=== PATIENT | male | born 1980 | race Caucasian/White ===

== ENCOUNTER 2020-02-04 10:10 | Emergency (ER) | payer OTHER, SELFPAY ==
[2020-02-04 10:11] VITALS: BP 131/85; PULSE 72; RESP 17; TEMP 36.9; O2SAT 100; BMI 32.8
--- NOTE | 2020-02-04 10:30 | ED.DCSUM_ITS ---
History of Present Illness Chief Complaint: Chest Pain Informant: Patient Onset: Days Narrative: 39-year-old male with no past medical history presents with complaints of chest pain. He states on 01/31 he developed some left-sided chest pressure that radiated into his left arm with associated shortness of breath and diaphoresis while he was moving boxes at work. The pain subsided to a dull ache that has been constant since then. Today the pain in his left arm worsened which is what brought him in. Denies cardiac history. Never smoker. Never had a stress test. States his dad had an WA in his 40s and later had a CABG. Denies fevers, chills, cough, abdominal pain, back pain, leg pain or swelling, recent surgery or travel, hormone use, or history of DVT/PE. Past Medical History - Allergies and Home Meds Allergies/Adverse Reactions: Allergies No Known Allergies Allergy (Verified 02/04/20 10:11) Primary Care Physician: [facility] Doctor,Out of [NON-STAFF] - Past Medical History: None Smoking Status: Never smoker Review of Systems General: Denies: Chills, Fever, Sweats Eyes: Denies: Visual changes - bilaterally, Diplopia ENT: Denies: Rhinorrhea, Sore throat Cardiovascular: Reports: Chest pain. Denies: Palpitations Respiratory: Reports: Dyspnea. Denies: Cough, Dyspnea on exertion Gastrointestinal: Denies: Abdominal pain, Nausea, Vomiting, Diarrhea, Melena, Hematochezia Genitourinary: Denies: Dysuria, Hematuria, Frequency Musculoskeletal: Denies: Back pain, Extremity Pain Skin: Denies: Rash, Wounds Neurological: Denies: Headache, Weakness, Numbness Physical Exam Vital Signs/Narrative: Vital Signs Temp Pulse Resp BP Pulse Ox 02/04/20 10:11 98.5 F 72 17 131/85 H 100 Inital Vital Signs reviewed: Yes General: Well nourished, Well developed, No Acute Distress Head: Normocephalic, Atraumatic Eyes: EOMI ENT: Moist mucous membranes, No rhinorrhea Neck: Supple, Nontender Cardiovascular: Regular rate, Regular rhythm, No murmurs Respiratory: No distress, CTA bilaterally, Chest nontender Abdomen: Soft, Nontender, Nondistended, Normal bowel sounds Back: Normal Inspection Extremities: Nontender, No edema Skin: Normal color, No rash Neurological: Alert, Oriented x3, Cranial nerves II-XII grossly intact, Normal Strength, Normal Sensation Psychological: Normal affect, Normal Mood Diagnostic/Tx/Re-eval Clinical Impression(s) from Imaging Studies Chest X-Ray 02/04/20 10:30 IMPRESSION: Normal x-ray examination of the chest. Electronically Signed: Rogerio Flores MD at 10:57 EDT Tel , Service support , Laboratory Data 02/04/20 02/04/20 02/04/20 10:25 10:25 13:25 WBC 5.4 RBC 4.29 L Hgb 13.3 Hct 39.5 L MCV 92.1 MCH 31.0 MCHC 33.7 RDW Std Deviation 45.5 H RDW Coeff of Alfonso 13.4 Plt Count 180 MPV 10.7 Immature Gran % (Auto) 0.200 Neut % (Auto) 42.0 L Lymph % (Auto) 43.6 H [place] % (Auto) 10.6 H Eos % (Auto) 3.0 Baso % (Auto) 0.6 Absolute Neuts (auto) 2.3 Absolute Lymphs (auto) 2.35 Nucleated RBC % 0 Sodium 143 Potassium 4.1 Chloride 110 H Carbon Dioxide 27.0 Anion Gap 6 BUN 7 Creatinine 0.86 Estim Creat Clear Calc 127.83 Est GFR (MDRD) Af Amer 129 Est GFR (MDRD) Non-Af 106 BUN/Creatinine Ratio 8.2 L Glucose 89 Calcium 8.5 Troponin I < 0.015 < 0.015 - Rhythm Strip Rhythm Strip: Sinus Rhythm Rate: 63 Ectopy: None - Medical Decision Making Patient appears well nontoxic. Vital signs within normal limits. EKG shows normal sinus rhythm with no signs of ischemia. Troponin x2 negative. PERC negative. Chest x-ray shows no acute process. He was given aspirin. Heart score is 3 and thus has low risk of major adverse cardiac event. Patient is stable for follow-up with his PCP and I advised he discuss getting a stress test outpatient. Discussed return precautions. He was agreeable with this plan and discharged home in stable condition. ED Disposition - Plan for ED Patient: Disposition: Home or Assisted Living Diagnosis: Chest pain Referrals: [facility] Doctor,Out of [NON-STAFF] -
--- NOTE | 2020-02-04 10:30 | RAD_ITS ---
STUDY: X-RAY CHEST REASON FOR EXAM: Male, 39 years old. CHEST PAIN TECHNIQUE: Single AP portable view of the chest. COMPARISON: None. FINDINGS: The lungs are clear and expanded. There is no demonstrated pleural abnormality. Normal size heart. Normal mediastinum and marcelina. Normal visualized pulmonary arteries. Normal visualized aortic arch and descending thoracic aorta. Normal visualized thoracic spine. Normal visualized ribs, clavicles, and shoulders. There is no demonstrated abnormality of the visualized soft tissue structures of the upper abdomen. RAD/Chest 1 View (Portable) IMPRESSION: Normal x-ray examination of the chest. Electronically Signed: Rogerio Flores MD at 10:57 EDT Tel , Service support ,
--- NOTE | 2020-02-04 10:30 | EKG12_ITS ---
Test Reason : CP Blood Pressure : / mmHG Vent. Rate : 063 BPM Atrial Rate : 063 BPM P-R Int : 182 ms QRS Dur : 098 ms QT Int : 408 ms P-R-T Axes : 051 035 034 degrees QTc Int : 417 ms Normal sinus rhythm Normal ECG Confirmed by MATTI BANSAL MD ([id number]), rewrite editor ZAY JAIMES ([id number]) on 02/06/2020 1:24:12 PM Referred By: SALENA Confirmed By:MATTI BANSAL MD
[2020-02-04 10:33] VITALS: O2SAT 99
[2020-02-04 10:36] LABS: Absolute Lymphocyte Count 2.35 X10^3/uL (0.83-4.51); Absolute Neutrophil Count 2.3 X10^3/uL (2.0-7.7); Basophil# 0.03 X10^3/uL; Basophil% 0.6 % (0-1); Eosinophil# 0.16 X10^3/uL; Hematocrit 39.5 % (40-54); Hemoglobin 13.3 g/dL (13.0-16.5); Lymphocyte # 2.35 X10^3/ul (4.0); Lymphocyte % 43.6 % (19-41); Mean Corp Hgb Conc 33.7 g/dL (32-36); Mean Corpuscular Volume 92.1 fL (80-94); Mean Platelet Vol. 10.7 fl (6.2-12.0); Monocyte# 0.57 X10^3/uL; Monocyte% 10.6 % (0-10); NRBC Flagged by Analyzer 0 % (0-5); Neutrophil # 2.27 X10^3/uL (2.7-7.7); Platelet Count 180 K/mm3 (150-450); RBC Distribution Width CV 13.4 % (11.6-14.6); RBC Distribution Width SD 45.5 fl (35.1-43.9); Red Blood Count 4.29 M/mm3 (4.6-6.2); White Blood Count 5.4 K/mm3 (4.4-11.0)
[2020-02-04] MEDS: Aspirin 81 MG TAB.CHEW 324 MG PO (10:44)
[2020-02-04 10:54] LABS: Anion Gap 6 (5-15); BUN 7 mg/dL (7-18); BUN/Creat Ratio 8.2 RATIO (10-20); Calcium,Total 8.5 mg/dL (8.5-10.1); Chloride 110 mmol/L (98-107); Creatinine, Serum 0.86 mg/dL (0.70-1.30); EST Glomerular Filtration Rate 106 mL/min (>60); Est Glom Filt Rate - Afr Amer 129 mL/min (>60); Estimated Creatinine Clearance 127.83 ml/min; Glucose 89 mg/dL (74-106); Potassium 4.1 mmol/L (3.5-5.1); Sodium Level 143 mmol/L (136-145)
[2020-02-04 11:27] VITALS: BP 122/79; PULSE 64; RESP 14; O2SAT 97
[2020-02-04 12:53] VITALS: BP 110/75; PULSE 50; RESP 16; O2SAT 100
[2020-02-04 13:43] VITALS: BP 115/72; PULSE 64; RESP 13; O2SAT 97
[2020-02-04 14:11] VITALS: BP 125/78; PULSE 63; RESP 16; O2SAT 97
== END 2020-02-04 14:12 | disposition home or self-care (01) ==
PROVIDERS: Emergency Provider Physician Assistant
DX: R07.89 Other chest pain (principal)
CPT/HCPCS: 36415; 71045; 80048; 84484; 85025; 93005; 99284; A4216

== ENCOUNTER 2021-05-30 09:11 | Outpatient (CLI) | payer OTHER, SELFPAY ==
[2021-05-30 11:08] LABS: Absolute Lymphocyte Count 2.39 X10^3/uL (0.83-4.51); Absolute Neutrophil Count 2.9 X10^3/uL (2.0-7.7); Basophil# 0.05 X10^3/uL; Basophil% 0.8 % (0-1); Eosinophil# 0.38 X10^3/uL; Eosinophils% 6.1 % (0-5); Hematocrit 42.7 % (40-54); Hemoglobin 14.1 g/dL (13.0-16.5); Lymphocyte # 2.39 X10^3/ul (0.83-4.51); Lymphocyte % 38.1 % (19-41); Mean Corpuscular Hgb 30.3 pg (27.0-32.0); Mean Corpuscular Volume 91.6 fL (80-94); Mean Platelet Vol. 11.2 fl (6.2-12.0); Monocyte# 0.55 X10^3/uL; Monocyte% 8.8 % (0-10); NRBC Flagged by Analyzer 0 % (0-5); Neutrophil # 2.89 X10^3/uL (2.7-7.7); Platelet Count 187 K/mm3 (150-450); RBC Distribution Width CV 13.6 % (11.6-14.6); RBC Distribution Width SD 45.8 fl (35.1-43.9); Red Blood Count 4.66 M/mm3 (4.6-6.2); White Blood Count 6.3 K/mm3 (4.4-11.0)
[2021-05-30 11:16] LABS: Vitamin D,25 Hydroxy 29.7 ng/mL
[2021-05-30 11:20] LABS: Hemoglobin A1c 5.9 % (3.8-5.6)
[2021-05-30 11:26] LABS: ALB/GLOB Ratio 0.9 RATIO (0.9-2.4); AST(SGOT) 39 U/L (15-37); Alanine Aminotransfer ALT/SGPT 81 U/L (16-61); Albumin, Serum 3.9 g/dL (3.2-5.0); Alkaline Phosphatase 110 U/L (45-117); Anion Gap 8 (5-15); BUN 13 mg/dL (7-18); Calcium,Total 9.1 mg/dL (8.5-10.1); Chloride 107 mmol/L (98-107); Cholesterol 171 mg/dL (200); Creatinine, Serum 0.87 mg/dL (0.70-1.30); EST Glomerular Filtration Rate 104 mL/min (>60); Est Glom Filt Rate - Afr Amer 125 mL/min (>60); Free T3 2.8 pg/mL (2.18-3.98); Globulin 4.2 g/dL (2.2-4.2); Glucose 102 mg/dL (74-106); High Density Lipoprotein 36 mg/dL; PSA,Total - Annual Screen 0.26 ng/mL (0.00-4.00); Potassium 4.2 mmol/L (3.5-5.1); Protein, Total 8.1 g/dL (6.4-8.2); Sodium Level 138 mmol/L (136-145); T4 Free Direct 0.87 ng/dL (0.76-1.46); Thyroid Stim Hormone (TSH) 1.99 uIU/mL (0.358-3.74); Triglycerides 139 mg/dL; Very Low Density Lipoprotein 28 mg/dL (5-40)
[2021-06-04 12:08] LABS: Testosterone, Free 12.91 ng/dL (5.00-21.00)
[2021-06-04 12:50] LABS: Testosterone, Total 587 ng/dL (264-916)
== END 2021-05-30 23:59 | disposition short-term general hospital (02) ==
LOC: BIMLAB 09:11
PROVIDERS: PCP Internal Medicine; Referring Provider Internal Medicine; Visit Provider Internal Medicine
DX: E55.9 Vitamin D deficiency, unspecified (principal); R53.83 Other fatigue; Z13.220 Encounter for screening for lipoid disorders; Z13.1 Encounter for screening for diabetes mellitus; Z90.89 Acquired absence of other organs; Z86.69 Personal history of other diseases of the nervous system and sense organs
CPT/HCPCS: 36415; 80053; 80061; 82306; 83036; 84153; 84402; 84403; 84439; 84443; 84481; 85025; G0103

== ENCOUNTER 2021-06-06 07:28 | Outpatient (CLI) | payer OTHER, SELFPAY ==
--- NOTE | 2021-06-06 07:31 | US_ITS ---
STUDY: ABDOMINAL ULTRASOUND - RIGHT UPPER QUADRANT REASON FOR VISIT: Male, 40 years old Elevated LFTs possible fatty liver disease. TECHNIQUE: Ultrasound evaluation of the right upper quadrant was performed with real-time and static kan-scale imaging. TECHNICAL QUALITY: Adequate. COMPARISON: None. FINDINGS: Liver: The liver measures 20.3 cm. There is increased echogenicity consistent with fatty infiltration. The bile ducts are within normal limits. There is hepatic color flow. The direction of portal flow is hepatopetal. There is no demonstrated mass lesion. Gallbladder: Normal distended gallbladder. The gallbladder wall measures 2.0 mm. There is a negative sonographic Serra''s sign. There is no pericholecystic fluid. There are no gallstones. Common Bile Duct (C.B.D.): The common bile duct measures 3.4 mm. Pancreas: Normal size of the head, body and tail of the pancreas. There is increased echogenicity of the pancreas. There is no demonstrated pancreatic mass or cyst. Right Kidney: Normal size of the right kidney. The right kidney measures 12.9 x 6.6 x 6.2 cm. Normal renal cortex. The right cortex measures 1.7 cm. There is no demonstrated renal mass or cyst. There is no right hydronephrosis. US/Liver IMPRESSION: Hepatomegaly with diffuse fatty infiltration of the liver, no discrete lesion. Remaining solid organs of the abdomen are sonographically normal. Pancreas is nonspecifically echogenic Electronically Signed: Bryan Gan MD at 13:32 EST , Service support ,
== END 2021-06-06 23:59 | disposition short-term general hospital (02) ==
LOC: US 07:30
PROVIDERS: PCP Internal Medicine; Referring Provider Internal Medicine; Visit Provider Internal Medicine
DX: R79.89 Other specified abnormal findings of blood chemistry (principal)
CPT/HCPCS: 76705

== ENCOUNTER 2021-08-01 08:19 | Day surgery (SDC) | payer OTHER, SELFPAY ==
[2021-08-01 08:40] VITALS: BP 134/87; PULSE 90; RESP 16; TEMP 36.1; O2SAT 97; BMI 36.6
[2021-08-01] MEDS: Lactated Ringers 1,000 ML 15 ML IV (08:53)
--- NOTE | 2021-08-01 08:53 | PCM.HP.BLA ---
History and Physical Date of Admission: 08/01/21 Intake Visit Reasons: C-Scope/Change in bowel habits/Abdominal Mass Chief Complaint: c-scope [employer] Required: No Is patient in pain?: No Allergies No Known Allergies Allergy (Verified 07/17/21 15:05) Medications multivitamin with minerals 1 ea PO DAILY 02/04/20 [History Confirmed 07/17/21] fluticasone propionate 50 mcg/actuation nasal spray,suspension 2 spray INTRANASAL DAILY 05/29/21 [History Confirmed 07/17/21] [facility] Medical History (Updated 07/17/21 @ 16:04 by Praveena MARTÍNEZ PAMarcyC) GERD (gastroesophageal reflux disease) History of sleep apnea Surgical History History of tonsillectomy and adenoidectomy Family History Father Diabetes Heart disease Multiple sclerosis Grandmother Arthritis Social History Smoking Status: Never smoker alcohol intake: current alcohol intake frequency: holidays/special occasions only substance use type: does not use what type of physical activity do you participate in: bicycling and yoga frequency: 1-2 times per week HPI HPI HPI: ROBERTO LAI, is a 40 M who presents to the office today for change in bowel habits and reflux. Patient established with his new PCP and noted he has recently had a change in bowel habits within the last 6 months. Patient notes his stool is ribbon-like, thin and flat. He also notes after completing his bowel movement. He also notes itchiness at his anus along with clear mucous. He denies blood mixed with the mucous. He notes this occurs after every bowel movement. He notes small amounts of blood on the toilet paper every so often. He denies abdominal pain. He denies recent unintentional weight loss. He notes losing 40 pounds last summer through diet and exercise. He notes also having reflux symptoms once a week. He notes this only occurs at night time. Patient denies having a previous upper or lower endoscopy. He denies taking a PPI daily. He notes he is taking ibuprofen multiple times per week for aches and pains approximately 2 tablets three times per day. Patient also notes a bulge to the right of the umbilicus. Patient denies any previous abdominal surgeries. He states he noticed this area approximately 6-8 months ago. He denies any trauma or heavy lifting to cause the bulge. He notes the bulge more with standing. He states the area is not painful or tender. He denies any coughing or sneezing fit. He also notes after losing 40 pounds last year, he has gained it back. ROS General General: Yes fatigue; No weight change, appetite, colon cancer, breast cancer or weakness HEENT HEENT: No difficulty swallowing, eye injury, eye surgery, swollen glands or hoarseness Endo Endocrine: No thyroid disease, diabetes mellitus, thyroid cancer, Hair loss, heat intolerance or cold intolerance Skin Skin: No rash or changing moles Breast Breast: No left breast lump, right breast lump, nipple discharge, breast pain, abnormal mammogram, abnormal US or breast enlargement Musc Musculoskeletal: Yes back problems and arthritis; No rheumatoid arthritis, gout or joint pain Cardio Cardiovascular: No murmur, pacemaker, heart disease, atrial fibrillation, high blood pressure, heart attack, heart stent, palpitations, shortness of breat with exertion or chest pain Psych Psychiatric: No depression, anxiety or hearing voices Resp Respiratory: No shortness of breath, No sleep apnea, No cough, No COPD, No asthma, No emphysema and No wheezing Gastro Gastrointestinal: No abdominal pain, No nausea or vomiting, No diarrhea, No constipation, No blood in stool, Yes acid reflux, Yes hemorrhoids, No ulcers, No gallbladder problem and No black,tarry stools Triston Hematologic: No blood thinners, No blood disorders, No bleeding, No anemia and No blood clots Neuro Neurologic: No system reviewed and no additional complaints, except as documented, No as per HPI, No abnormal gait, No abnormal hearing, No abnormal movements, No abnormal speech, No behavioral changes, No burning sensations, No confusion, No convulsions, No disequilibrium, No dizziness, No localized weakness, No frequent falls, No headache(s), No lack of coordination, No loss of vision, No memory loss, No numbness, No other visual disturbances, No radicular pain, No restless legs, No sensory deficit, No syncope, No tingling, No tremor(s), No weakness and No other Exam Const General: cooperative, healthy appearing, comfortable and no acute distress [facility] Head: normal to inspection Eyes General: appearance normal, both eyes and all related structures Neck Neck: normal visual inspection Resp Effort & Inspection: normal respiratory effort Auscultation: clear to auscultation bilaterally Cardio Rate: regular rate Rhythm: regular rhythm GI Inspection: normal to inspection Palpation: soft and no hernias Auscultation: normal bowel sounds Other: Asymmetry noted to the right of the umbilicus. Evaluated area with patient laying supine with no pain and unable to palpate a hernia. Patient then stood up on the floor. There is a slight notable asymmetry to the right of the umbilicus. I again evaluated the area for a hernia and was not palpated. In comparing with the other side, there is no hernia. Abdominal bulge appears to be a distribution of subcutaneous fat. Musc Cervical Spine: normal cervical lordosis Skin General: no rashes or lesions noted Neuro General: no focal motor deficits and CN's II-XI intact bilaterally Extrem General: normal to inspection Psych Appearance: grossly normal Affect: normal affect COVID (Procedure Consent) Procedure Criteria Procedure Criteria: Yes Elective The surgeon/proceduralist and patient have discussed in detail the risk of exposure to and/or potential harm posed by the COVID-19 virus with having a surgery/procedure at this time versus the risk of delaying the surgery/procedure. It is not possible to know either the risk of delaying the surgery or procedure or chance of getting an infection with perfect accuracy, but a joint decision was made between the patient and the surgeon/proceduralist to proceed at this time with the scheduled surgery/procedure as indicated on the consent form. Assessment and Plan Assessment and Plan (1) Change in bowel movement: Status: Acute Plan - Praveena MARTÍNEZ PAMarcyC: Dr. Barahona will plan to perform an upper and lower endoscopy with possible biopsies. Procedure details, risks and benefits have been explained to the patient. It was discussed with the patient in regards to not finding an etiology for the change in bowel movements or mucous of the stool. We will plan for 1 day of clear liquids with Miralax prep. I have also recommended an upper scope due to reflux symptoms and chronic use of NSAIDs for pain. Patient has had the opportunity to ask and have questions answered. Patient verbally understands and agrees with the plan. (2) GERD (gastroesophageal reflux disease): Status: Acute Qualifiers: Esophagitis presence: esophagitis presence not specified Qualified Code(s): K21.9 - Gastro-esophageal reflux disease without esophagitis Plan - Praveena MARTÍNEZ PA-C: Proceed with an upper scope (3) Abdominal wall bulge: Status: Acute Plan - Praveena MARTÍNEZ PA-C: Hernia not palpated during physical exam. Patient has never had any previous abdominal surgeries. No umbilical hernia. Appears to be a redistribution of subcutaneous fat. No surgical intervention recommended. Coding Level of Care Code Off vis,new,level 3 Diagnoses Change in bowel movement R19.8 GERD (gastroesophageal reflux disease) K21.9 Esophagitis presence: esophagitis presence not specified Abdominal wall bulge R19.00 07/17/21 1612<Electronically signed by Praveena MARTÍNEZ PA-C> I have re-examined the patient. There are no clinical changes since date of exam. Chris Knowles M.D., F.A.C.S.
--- NOTE | 2021-08-01 09:15 | EGD_PTH ---
PATIENT: ROBERTO LAI LOC: EN U#:[id number] AGE/SX: 40/M ROOM: RE08/01/[address]: Dr. Chris Knowles MD : 1980 BED: DIS: 08/01/2021 SPEC #: [id number] RECD: 08/01/21 12:24 STATUS: DOC BRYCE #: [id number] CHRISTINE: 08/01/21 09:[address]: Chris Knowles DEPT: SURGICAL PATHOLOGY RECD BY: Brenda Parry ENTERED: 08/01/21 13:15 SP TYPE: EGD BIOPSY OT DR: Dr. Tosin Nair MD Tissues: A - Duodenum, NOS B - Gastric mucous membrane C - Esophagus, NOS D - Esophagus, NOS E - COLON BIOPSY Procedures: Special Stain Group II Surgery Specimen Level IV Alcian Blue/PAS (control) HEADER OPERATION: Colonoscopy, EGD ([facility] [place]) PRE-OP DIAGNOSIS: Change in bowel movement, GERD TISSUE SUBMITTED: A ? Duodenum biopsy, B ? Gastric antrum biopsy, C ? Distal esophagus biopsy, D ? Mid esophagus biopsy, E ? Random colon biopsy MICROSCOPIC DIAGNOSIS A. Duodenum, biopsy: Mild nonspecific chronic duodenitis. B. Gastric antrum, biopsy: Chronic gastritis. See comment. C. Distal esophagus, biopsy: Reflux esophagitis. No evidence of goblet cell metaplasia. See comment. D. Mid esophagus, biopsy: Consistent with eosinophilic esophagitis. E. Colon, random biopsy: No significant pathologic change. See comment. AM:chepe 08/04/2021 COMMENT B. The results of immunohistochemistry for Helicobacter pylori will be reported separately ([id number]). C. The eosinophilic count is greater than 15 per high power field. Clinical correlation is suggested. Alcian blue/PAS stain with matched control supports the above diagnosis. E. Eosinophils are increased in the mucosa. The significance of this is unclear. Clinical correlation is suggested. MICROSCOPIC DESCRIPTION Slides are reviewed. GROSS DESCRIPTION A - Received in fixative is one container labeled with the patient's name and designated duodenum biopsy. The specimen consists of one irregular fragment of light cardenas soft tissue that measures 0.5 x 0.5 x 0.1 cm. The specimen is totally submitted in one cassette. B - Received in fixative is one container labeled with the patient's name and designated gastric antrum biopsy. The specimen consists of one irregular fragment of light cardenas soft tissue that measures 0.6 x 0.5 x 0.1 cm. The specimen is totally submitted in one cassette. C - Received in fixative is one container labeled with the patient's name and designated distal esophagus biopsy. The specimen consists of two irregular fragments of light cardenas soft tissue that in aggregate measure 0.5 x 0.3 x 0.1 cm. The specimen is totally submitted in one cassette. D - Received in fixative is one container labeled with the patient's name and designated mid esophagus biopsy. The specimen consists of multiple irregular fragments of light cardenas soft tissue that in aggregate measure 0.5 x 0.3 x 0.1 cm. The specimen is totally submitted in one cassette. E - Received in fixative is one container labeled with the patient's name and designated random colon biopsy. The specimen consists of multiple irregular fragments of light cardenas soft tissue that in aggregate measure 1 x 0.5 x 0.1 cm. The specimen is totally submitted in one cassette. / AM:chepe 08/01/2021 TC:3 CPT: 18796 x5, 45038
--- NOTE | 2021-08-01 09:15 | IMM_PTH ---
PATIENT: ROBERTO LAI LOC: EN U#:[id number] AGE/SX: 40/M ROOM: RE08/01/[address]: Dr. Chris Knowles MD : 1980 BED: DIS: 08/01/2021 SPEC #: [id number] RECD: 08/04/21 09:13 STATUS: DOC REJuan #: [id number] CHRISTINE: 08/01/21 09:[address]: Chris Knowles DEPT: IMMUNOHISTOCHEMISTRY RECD BY: Lulu Murrieta ENTERED: 08/04/21 09:14 SP TYPE: IMMUNO OTHR DR: Dr. Tosin Nair MD Tissues: B - Stomach, NOS Procedures: H Pylori (initial) PHYSICIAN & INSTITUTION [address] [address] SPECIMEN INFORMATION: Tissue Source: B ? Gastric antrum biopsy Clinical Info: Change in bowel movement, GERD Specimen Number: [id number] CPT code: 56719 METHODOLOGY: Deparaffinized sections of prefer/formalin-fixed tissue or PAP/DQ stained slides are incubated with monoclonal/polyclonal antibodies/oligonucleotide probes. Localization is made via biotin free immunoperoxidase method. Appropriate controls are performed and reacted as expected. Results on target cell population are indicated in the following table: RESULTS: ANTIBODY / CLONE RESULT Block B H Pylori (polyclonal) negative These tests were developed and their performance characteristics determined by [facility]. They may not have been cleared or approved by the U.S. Food and Drug Administration. The FDA has determined that such clearance or approval is not necessary. The above immunohistochemical/dualISH markers are ordered and reviewed by the Pathologist. INTERPRETATION: B. Gastric antrum, biopsy: Negative for Helicobacter pylori organisms. AM:chepe 08/04/2021
[2021-08-01 10:26] VITALS: BP 134/87; BP 93/53; PULSE 84; RESP 18; TEMP 36.7; O2SAT 98
--- NOTE | 2021-08-01 10:29 | OP.EGD_ITS ---
Patient Name: Brent Shipley Procedure Date: 08/01/2021 9:38 AM Date of : 1980 Age: 40 Procedure: Upper GI endoscopy Indications: Suspected esophageal reflux Providers: Chris Knowles MD Medicines: See the Anesthesia note for documentation of the administered medications Complications: No immediate complications. Procedure: Pre-Anesthesia Assessment: - Prior to the procedure, a History and Physical was performed, and patient medications and allergies were reviewed. The patient's tolerance of previous anesthesia was also reviewed. The risks and benefits of the procedure and the sedation options and risks were discussed with the patient. All questions were answered, and informed consent was obtained. Prior Anticoagulants: The patient has taken no previous anticoagulant or antiplatelet agents. ASA Grade Assessment: III - A patient with severe systemic disease. After reviewing the risks and benefits, the patient was deemed in satisfactory condition to undergo the procedure. After obtaining informed consent, the endoscope was passed under direct vision. Throughout the procedure, the patient's blood pressure, pulse, and oxygen saturations were monitored continuously. The gastroscope was introduced through the mouth, and advanced to the second part of duodenum. The upper GI endoscopy was unusually difficult due to enhanced patient gag reflex causing intolerance of esophageal intubation, the patient's body habitus and the patient's respiratory instability. Successful completion of the procedure was aided by Anesthesia staff assisting with sedation. The patient tolerated the procedure well. Scope In: 9:53:54 AM Scope Out: 9:59:52 AM Total Procedure Duration Time 0 hours 5 minutes 58 seconds Findings: Mucosal changes including circumferential folds were found in the entire esophagus. Biopsies were taken with a cold forceps for histology. Diffuse mild inflammation was found in the gastric antrum. Biopsies were taken with a cold forceps for histology. Diffuse mildly erythematous mucosa without active bleeding and with no stigmata of bleeding was found in the duodenal bulb. Biopsies were taken with a cold forceps for histology. A medium-sized hiatal hernia was present. Impression: - Esophageal mucosal changes suspicious for eosinophilic esophagitis. Biopsied mid and distally. - Chronic gastritis. Biopsied. - Erythematous duodenopathy. Biopsied. Recommendation: - Discharge patient to home. - Resume previous diet. - Continue present medications. - Use Prilosec (omeprazole) 40 mg PO daily. Procedure Code(s): --- Professional --- 00159, Esophagogastroduodenoscopy, flexible, transoral; with biopsy, single or multiple Diagnosis Code(s): --- Professional --- K22.8, Other specified diseases of esophagus K29.50, Unspecified chronic gastritis without bleeding K31.89, Other diseases of stomach and duodenum CPT copyright 2017 [employer]. All rights reserved. The codes documented in this report are preliminary and upon order caller review may be revised to meet current compliance requirements. Chris Knowles MD 08/01/2021 10:29:08 AM This report has been signed electronically. Number of Addenda: 0 Note Initiated On: 08/01/2021 9:38 AM
[2021-08-01 10:30] VITALS: BP 106/66; BP 134/87; PULSE 90; RESP 18; O2SAT 99
--- NOTE | 2021-08-01 10:30 | OP.CCLET_ITS ---
08/01/2021 Tosin Nair [facility] [address] [place] [address] Re : Upper GI endoscopy procedure for Brent Shipley Dear Dr. Nair This procedure was performed on Sunday, August 01, 2021. My impressions and recommendations are as follows: Impressions : - Esophageal mucosal changes suspicious for eosinophilic esophagitis. Biopsied mid and distally. - Chronic gastritis. Biopsied. - Erythematous duodenopathy. Biopsied. Recommendations : - Discharge patient to home. - Resume previous diet. - Continue present medications. - Use Prilosec (omeprazole) 40 mg PO daily. My findings are described in the full procedure note, which is enclosed. If I can be of further assistance, please feel free to contact me at Doctor phone number(s): Work: . Sincerely, Chris Knowles MD 08/01/2021 10:29:08 AM This report has been signed electronically.
--- NOTE | 2021-08-01 10:34 | OP.COLON_ITS ---
Patient Name: Brent Shipley Procedure Date: 08/01/2021 10:00 AM Date of : 1980 Age: 40 Procedure: Colonoscopy Indications: Change in bowel habits, Change in stool caliber Providers: Chris Knowles MD Medicines: See the Anesthesia note for documentation of the administered medications Patient Profile: Last Colonoscopy: none. The patient's first colonoscopy is today. Complications: No immediate complications. Procedure: Pre-Anesthesia Assessment: - Prior to the procedure, a History and Physical was performed, and patient medications and allergies were reviewed. The patient's tolerance of previous anesthesia was also reviewed. The risks and benefits of the procedure and the sedation options and risks were discussed with the patient. All questions were answered, and informed consent was obtained. Prior Anticoagulants: The patient has taken no previous anticoagulant or antiplatelet agents. ASA Grade Assessment: III - A patient with severe systemic disease. After reviewing the risks and benefits, the patient was deemed in satisfactory condition to undergo the procedure. After I obtained informed consent, the scope was passed under direct vision. Throughout the procedure, the patient's blood pressure, pulse, and oxygen saturations were monitored continuously. The colonoscope was introduced through the anus and advanced to the cecum, identified by appendiceal orifice and ileocecal valve. The colonoscopy was performed without difficulty. The patient tolerated the procedure well. The quality of the bowel preparation was good. The ileocecal valve and the appendiceal orifice were photographed. Scope In: 10:08:00 AM Scope Withdrawal Time 0 hours 6 minutes 10 seconds Scope Out: 10:22:33 AM Total Procedure Duration Time 0 hours 14 minutes 33 seconds Findings: The perianal and digital rectal examinations were normal. The colon (entire examined portion) appeared normal. Biopsies for histology were taken with a cold forceps from the entire colon for evaluation of microscopic colitis. Impression: - The entire examined colon is normal. Biopsied. Recommendation: - Discharge patient to home. - Resume previous diet. - Continue present medications. - Repeat colonoscopy in 10 years for screening purposes. Procedure Code(s): --- Professional --- 99899, Colonoscopy, flexible; with biopsy, single or multiple Diagnosis Code(s): --- Professional --- R19.4, Change in bowel habit R19.5, Other fecal abnormalities CPT copyright 2017 [employer]. All rights reserved. The codes documented in this report are preliminary and upon delimber operator review may be revised to meet current compliance requirements. Chris Knowles MD 08/01/2021 10:33:22 AM This report has been signed electronically. Number of Addenda: 0 Note Initiated On: 08/01/2021 10:00 AM
[2021-08-01 10:35] VITALS: BP 110/71; BP 134/87; PULSE 85; RESP 18; O2SAT 98
--- NOTE | 2021-08-01 10:35 | OP.CCLET_ITS ---
08/01/2021 Tosin Nair [facility] [address] [place] [address] Re : Colonoscopy procedure for Brent Shipley Dear Dr. Nair This procedure was performed on Sunday, August 01, 2021. My impressions and recommendations are as follows: Impressions : - The entire examined colon is normal. Biopsied. Recommendations : - Discharge patient to home. - Resume previous diet. - Continue present medications. - Repeat colonoscopy in 10 years for screening purposes. My findings are described in the full procedure note, which is enclosed. If I can be of further assistance, please feel free to contact me at Doctor phone number(s): Work: . Sincerely, Chris Knowles MD 08/01/2021 10:33:22 AM This report has been signed electronically.
[2021-08-01 10:42] VITALS: BP 113/70; BP 134/87; PULSE 83; RESP 18; TEMP 36.7; O2SAT 97
[2021-08-01 11:28] VITALS: BP 134/87
== END 2021-08-01 23:59 | disposition home or self-care (01) ==
LOC: EN 08:20 → AC 08:20
PROVIDERS: PCP Internal Medicine; Referring Provider Internal Medicine; Visit Provider Surgery
PROC: 0DJD8ZZ Inspection of Lower Intestinal Tract, Via Natural or Artificial Opening Endoscopic (ICD-10-PCS; CPT 45378; principal; 2021-08-01 09:10)
DX: K29.50 Unspecified chronic gastritis without bleeding (principal); K29.80 Duodenitis without bleeding; K21.00 Gastro-esophageal reflux disease with esophagitis, without bleeding; E66.9 Obesity, unspecified; K76.0 Fatty (change of) liver, not elsewhere classified; Z68.36 Body mass index [BMI] 36.0-36.9, adult; K44.9 Diaphragmatic hernia without obstruction or gangrene
CPT/HCPCS: 45380; 43239; 87426; 88305; 88313; 88342; C9803; J7120; J2405

== ENCOUNTER 2021-10-31 07:00 | Outpatient (RCR) | payer OTHER, SELFPAY ==
--- NOTE | 2021-08-21 17:44 | HP.PTEVAL ---
Patient's Visit Information ROBERTO LAI is a 41 year old M referred to Physical Therapy by Tosin Nair MD with a diagnosis of R bicipital tendonits. Date of Evaluation: 08/21/21 Physical Therapist: Jesus Rios, PT, ATC - Visit Plan Frequency: 2x /Week Duration: 4-6 Weeks Plan: R shoulder strengthening (rot cuff and ECC biceps), scap stab ex's, UBE, and HEP - Subjective Pt reports he injured his R shoulder last paddle boarding last summer. Pt reports his R shoulder was very sore for about one week, and then the pain slowily lessened. Pt reports he continues to experience the same pain through today if he performs specific movements. Pt reports any type of throwing, overhead lifting, and many other quick movements tend to increase his pain. Pt is R hand dominant. Pt reports he has had a PMHx of R shoulder pain in the past that would usually resolve itself. No tingling or numbness at this time. Pt reports occasional sleep difficulty secondary to pain. 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 Pt reports no Dx tests at this time. 1/10 pain at rest, 6/10 pain at worst. - Pain R shoulder Pain Intensity (Out of 10): 1 Pain Intensity Range: 6 - Objective Neuro: B UE sensation is WNL to light touch. B bicepital reflex= 2/3. Palpation: Pt is sore along the LHB tendon. No obvious deformity at this time. ROM: L shoulder flex= 140, abd= 140, ER= 50, IR WNL; R shoulder flex= 140, abd= 130, ER= 50, IR WNL. MMT: R shoulder flex= 7, abd= 15, bicep flex= 23; L shoulder flex= 23, abd= 27, bicep flex= 23. Special tests: pos apprehension test, neg - Balance/Special Test Scores Quick DASH Score: 27.6175 - Goals Goal 1:: Decrease R shoulder pain x 50% to aid with sleep Goal Time Frame: 4-6 Weeks Goal 2:: Increase R shoulder flexion and abd strength x 5#F to aid with IADL's Goal Time Frame: 4-6 Weeks Goal 3:: I with HEP Goal Time Frame: 4-6 Weeks - Rehabilitation Potential Physical Therapy Diagnosis: Pt has R shoulder pain, weakness, and difficulty with overhead lifting secondary to bicipital tendonits Rehabilitation Potential: Good - Anticipated Interventions Patient/Client Instruction: Educate patient on: Condition, Plan of Care For the Purpose of:: To improve self management Therapeutic Exercise to Include: Strength training, Endurance training, Flexibilty training, Active ROM, Scapular Strength/Stabilization For the Purpose of:: To decrease pain, To improve muscle performance and motor function, To improve ability of physical actions for home/community/work/leisure Cryotherapy (ice pack, ice massage): Yes For the Purpose of:: To decrease pain Thank you for the opportunity to evaluate your patient. For Medicare and Medicare HMO plans, please review the plan of care and approve it. It will need to be FAXED BACK to us at [phone] for Medicare purposes. For Medicare only, by signing this I certify the plan of care. Please let me know if there are questions or concerns regarding this plan of care. Physician Signature: Date:
--- NOTE | 2021-09-26 07:35 | HP.PTREVAL ---
Tosin Nair MD, It has been my pleasure to treat ROBERTO LAI over the last 8 visits for R bicipital tendonits. Please see the progress note below for an update on the physical therapy plan of care! Subjective: Pt reports he is feeling better, but still has pain with specific movements Objective/Function: R shoulder pain ranges from 1/10 to 6/10. R shoulder MMT: flex= 13, abd= 24 #F. Pt is progressing with HEP. Pt is making sig progress towards Rx goals Plan Plan: F/U in 4 weeks. Pt to continue with I HEP until that time. Balance/Gait/Functional tests - Balance/Special Test Scores Quick DASH Score: 18.1800 Goals Goal 1:: Decrease R shoulder pain x 50% to aid with sleep Goal Time Frame: 4-6 Weeks Goal Progress: Progressing Goal 2:: Increase R shoulder flexion and abd strength x 5#F to aid with IADL's Goal Time Frame: 4-6 Weeks Goal Progress: Goal Met Goal 3:: I with HEP Goal Time Frame: 4-6 Weeks Goal Progress: Progressing Anticipated Interventions Patient/Client Instruction: Educate patient on: Condition, Plan of Care For the Purpose of:: To improve self management Therapeutic Exercise to Include: Strength training, Endurance training, Flexibilty training, Active ROM, Scapular Strength/Stabilization For the Purpose of:: To decrease pain, To improve muscle performance and motor function, To improve ability of physical actions for home/community/work/leisure Cryotherapy (ice pack, ice massage): Yes For the Purpose of:: To decrease pain Please do not hesitate to contact me at [phone] by phone or if you have questions or concerns regarding this new plan of care! Sincerely, Jesus Rios, PT, ATC
--- NOTE | 2021-10-31 07:23 | HP.PTDCSUM ---
It has been my pleasure to treat ROBERTO LAI referred by Tosin Nair MD, with the diagnosis of R bicipital tendonits for a total of 9 visit(s). Discharge Date: Please see the following information for a summary of their discharge status. Subjective: I am doing a lot better, but i still get occasional pain R shoulder Pain Intensity (Out of 10): 0 % Improvement: 60 Objective/Function: R shoulder pain ranges from 0-2/10. MMT: R shoulder flex= 16, abd= 23 #F. Pt is I with HEP. Rx goals achieved Goal 1:: Decrease R shoulder pain x 50% to aid with sleep Goal Progress: Goal Met Goal 2:: Increase R shoulder flexion and abd strength x 5#F to aid with IADL's Goal Progress: Goal Met Goal 3:: I with HEP Goal Progress: Goal Met Plan: Discharge to HEP If there are questions or concerns regarding this patient's physical therapy, please feel free to call me at [phone]. Thank you for the referral of this patient. Sincerely, Jesus Rios, PT, ATC Balance/Gait/Functional tests - Balance/Special Test Scores Quick DASH Score: 13.6374
== END 2021-10-31 09:46 | disposition home or self-care (01) ==
LOC: PT 07:00
PROVIDERS: PCP Internal Medicine; Referring Provider Internal Medicine
DX: M75.20 Bicipital tendinitis, unspecified shoulder (principal)
CPT/HCPCS: 97110; 97161; 97164

== ENCOUNTER → 2021-11-19 | Outpatient (CLI) | payer OTHER, SELFPAY ==
[2021-11-19 16:41] LABS: Absolute Neutrophil Count 2.6 X10^3/uL (2.0-7.7); Basophil# 0.02 X10^3/uL; Basophil% 0.4 % (0-1); Eosinophil# 0.23 X10^3/uL; Hematocrit 42.7 % (40-54); Hemoglobin 14.4 g/dL (13.0-16.5); Mean Corp Hgb Conc 33.7 g/dL (32-36); Mean Corpuscular Hgb 30.8 pg (27.0-32.0); Mean Corpuscular Volume 91.4 fL (80-94); Mean Platelet Vol. 12.1 fl (6.2-12.0); Monocyte# 0.44 X10^3/uL; Monocyte% 7.7 % (0-10); NRBC Flagged by Analyzer 0 % (0-5); Neutrophil # 2.61 X10^3/uL (2.7-7.7); Neutrophil % 45.7 % (47-70); Platelet Count 160 K/mm3 (150-450); RBC Distribution Width CV 13.7 % (11.6-14.6); RBC Distribution Width SD 45.3 fl (35.1-43.9); Red Blood Count 4.67 M/mm3 (4.6-6.2); White Blood Count 5.7 K/mm3 (4.4-11.0)
[2021-11-19 16:53] LABS: Hemoglobin A1c 5.8 % (3.8-5.6)
[2021-11-19 16:58] LABS: AST(SGOT) 30 U/L (15-37); Alanine Aminotransfer ALT/SGPT 55 U/L (16-61); Albumin, Serum 4.1 g/dL (3.2-5.0); Alkaline Phosphatase 107 U/L (45-117); Anion Gap 6 (5-15); BUN 12 mg/dL (7-18); BUN/Creat Ratio 11.7 RATIO (10-20); Calcium,Total 9.4 mg/dL (8.5-10.1); Chloride 106 mmol/L (98-107); Cholesterol 166 mg/dL (200); Creatinine, Serum 1.03 mg/dL (0.70-1.30); EST Glomerular Filtration Rate 85 mL/min (>60); Est Glom Filt Rate - Afr Amer 103 mL/min (>60); Globulin 4.2 g/dL (2.2-4.2); Glucose 81 mg/dL (74-106); High Density Lipoprotein 34 mg/dL; Potassium 4.8 mmol/L (3.5-5.1); Protein, Total 8.3 g/dL (6.4-8.2); Sodium Level 139 mmol/L (136-145); Thyroid Stim Hormone (TSH) 1.33 uIU/mL (0.358-3.74); Triglycerides 74 mg/dL; Very Low Density Lipoprotein 15 mg/dL (5-40)
[2021-11-19 17:17] LABS: Vitamin D,25 Hydroxy 27.7 ng/mL
== END | disposition home or self-care (01) ==
LOC: BIMLAB 15:20
PROVIDERS: PCP Internal Medicine; Referring Provider Internal Medicine; Visit Provider Internal Medicine
DX: R79.89 Other specified abnormal findings of blood chemistry (principal); E66.9 Obesity, unspecified; R73.09 Other abnormal glucose; Z86.69 Personal history of other diseases of the nervous system and sense organs
CPT/HCPCS: 36415; 80053; 80061; 82306; 83036; 84443; 85025

== ENCOUNTER 2022-05-13 14:23 | Emergency (ER) | payer OTHER, SELFPAY ==
[2022-05-13 14:24] VITALS: BP 144/94; PULSE 103; RESP 18; TEMP 35.9; O2SAT 96; BMI 32.5
--- NOTE | 2022-05-13 15:26 | EDS_ITS ---
HPI History of Present Illness Chief Complaint: General Illness Narrative Narrative: 41-year-old male presenting with chief complaint of right hip pain. He states that this started acutely overnight. He states it feels like he tweaked it, but he did not. He initially states he is unable to bear weight, however he was able to walk to his car, drive her to the emergency room, walking to the ER. Patient states that a week ago he had a sore throat which resolved. He was seen in urgent care yesterday for left ear pain and was diagnosed with otitis externa. He was given ofloxacin. He states he is put 3 drops in his ear since yesterday. He states his ear is actually improving but he does have some seeping from the ear. He thinks he might have had a fever but he has not checked. He does complain of chills and body aches. No nausea. No cough, shortness of breath. [facility] Medical History Alcohol use Eosinophilic esophagitis Fatty liver GERD (gastroesophageal reflux disease) History of sleep apnea Non-smoker Restless legs Home Medications multivitamin with minerals 1 ea PO DAILY 02/04/20 [History Last Taken Unknown] fluticasone propionate 50 mcg/actuation nasal spray,suspension (Flonase Allergy Relief) 2 spray intranasal DAILY 05/29/21 [History Last Taken Unknown] bupropion HCl 150 mg 24 hr tablet, extended release (Wellbutrin XL) 150 mg PO QAM #90 tabs 12/22/21 [Rx Last Taken Unknown] ciprofloxacin 0.3 %-dexamethasone 0.1 % ear drops,suspension (Ciprodex) 4 drp EACH EAR BID 7 days #7.5 mL 05/13/22 [Rx Last Taken Unknown] hydrocodone-acetaminophen 5-325mg 5mg-325mg 1 tab PO Q6H PRN pain 3 days #10 tabs 05/13/22 [Rx Last Taken Unknown] Allergy/AdvReac Type Severity Reaction Status Date / Time No Known Allergies Allergy Verified 05/13/22 14:26 Family History Father Diabetes Heart disease Multiple sclerosis Grandmother Arthritis Surgical History History of tonsillectomy and adenoidectomy Normal colonoscopy Normal endoscopy Social History Smoking Status: Never smoker alcohol intake: current alcohol intake frequency: holidays/special occasions only substance use type: does not use what type of physical activity do you participate in: bicycling and yoga frequency: 1-2 times per week EXAM Physical Exam Const Vital Signs: 05/13/22 14:24 Temperature 96.7 F L Temperature Source Temporal Pulse Rate 103 H Respiratory Rate 18 Blood Pressure 144/94 H Blood Pressure Mean 110 Pulse Ox 96 Oxygen Delivery Method Room Air Positive well nourished General Appearance ED: NAD; Negative for pallor HEENT Reports moist mucous membranes normocephalic Nose: external nose normal External Ear: external ear abnormal External Auditory Canal: EAC's abnormal left erythema, edema and tenderness Mouth ED: Yes oral and palatal mucosa normal Mouth: oral and palatal mucosa normal Eyes PERRL and EOMs intact bilaterally Chest Wall inspection of chest normal Resp normal respiratory effort and clear to auscultation bilaterally Cardio regular rhythm Rate: tachycardic GI normal to inspection, nondistended, normoactive bowel sounds Extremity normal to inspection Neuro oriented x3 and CN's II-XII intact bilaterally Sensorium / Orientation: alert Psych mental status grossly normal Skin no rashes or lesions noted General Skin Exam: Negative for jaundice or pallor MDM MDM MDM Narrative Medical decision making narrative: Patient presenting with right hip pain which is nontraumatic. Patient also co mplains of subjective fever and chills. He was previously diagnosed with otitis externa and is only had 3 doses of the medication. Appears to be ofloxacin. Patient does appear to have otitis externa but his ear is not closed. The TM is normal. He was given a dose of Cortisporin here in his left ear. I did obtain blood work and his CBC and BMP are normal. Patient was medicated with morphine and Zofran for his pain. Obtain a right hip x-ray which on my interpretation shows no acute fracture or subluxation. There are some degenerative changes. The radiologist interpreted this and agrees. Patient still complained of pain so he was given some oxycodone p.o. I do not believe he has a septic hip because he was able to ambulate and drive his car here today. I suspect may be a hip strain. He will be given [place] for home. He will be given Ciprodex for his ear going forward. He is given ENT follow-up. Impression: 1. Right hip strain 2. Left otitis externa Lab Data Attestation: I reviewed the patient's lab results. Labs: Laboratory Results - last 24 hr 05/13/22 05/13/22 16:00 16:00 WBC 9.7 RBC 4.37 L Hgb 13.3 Hct 39.0 L MCV 89.2 MCH 30.4 MCHC 34.1 RDW Std Deviation 43.1 RDW Coeff of Alfonso 13.2 Plt Count 127 L MPV 10.3 Immature Gran % (Auto) 0.600 Neut % (Auto) 87.7 H Lymph % (Auto) 4.7 L Wayne % (Auto) 6.8 Eos % (Auto) 0.0 Baso % (Auto) 0.2 Absolute Neuts (auto) 8.5 H Absolute Lymphs (auto) 0.45 L Nucleated RBC % 0 Differential Comment SCANNED Sodium 135 L Potassium 4.0 Chloride 102 Carbon Dioxide 25.0 Anion Gap 8 BUN 14 Creatinine 1.02 Estim Creat Clear Calc 105.66 Est GFR (MDRD) Af Amer 104 Est GFR (MDRD) Non-Af 86 BUN/Creatinine Ratio 13.7 Glucose 115 H Calcium 8.5 Radiography Diagnostic Testing: Clinical Impression(s) from Imaging Studies Hip/Pelvis X-Ray 05/13/22 16:29 IMPRESSION: Right hip DJD. Lesser trochanter enthesophyte. Electronically Signed: Gaurav Mora MD at 16:57 EST , Discharge Plan Triage Chief Complaint: General Illness ED Provider: Donovan Lowry Dx/Rx/DC Orders Instructions: ED Hip Strain, ED External Ear Infection (Adult) Prescriptions: New ciprofloxacin-dexamethasone [Ciprodex] 0.3-0.1 % drops,suspension 4 drp EACH EAR BID 7 Days Qty: 7.5 0RF hydrocodone-acetaminophen 5-325 mg tablet 1 tab PO Q6H PRN (Reason: pain) 3 Days Qty: 10 0RF No Action fluticasone propionate [Flonase Allergy Relief] 50 mcg/actuation s pray,suspension 2 spray intranasal DAILY Rx Instructions: administer into each nostril multivitamin with minerals 1 EACH tablet 1 ea PO DAILY bupropion HCl [Wellbutrin XL] 150 mg tablet extended release 24 hr 150 mg PO QAM Qty: 90 3RF Primary Care Provider: Tosin Nair Referrals: Tosin Nair MD [Primary Care Provider] - Disposition Disposition: Home, Self Care
[2022-05-13] MEDS: Morphine 4 MG/ML Syringe IV (15:57)
[2022-05-13] MEDS: Ondansetron 4 MG/2 ML Vial IV (15:57)
[2022-05-13] MEDS: Neomycin/Polymyxin/Dexameth 5ML OPTH.BTL 4 DRP OTIC (16:10)
[2022-05-13 16:19] LABS: Absolute Lymphocyte Count 0.45 X10^3/uL (0.83-4.51); Absolute Neutrophil Count 8.5 X10^3/uL (2.0-7.7); Basophil# 0.02 X10^3/uL; Basophil% 0.2 % (0-1); Hemoglobin 13.3 g/dL (13.0-16.5); Lymphocyte # 0.45 X10^3/ul (0.83-4.51); Lymphocyte % 4.7 % (19-41); Mean Corp Hgb Conc 34.1 g/dL (32-36); Mean Corpuscular Hgb 30.4 pg (27.0-32.0); Mean Corpuscular Volume 89.2 fL (80-94); Mean Platelet Vol. 10.3 fl (6.2-12.0); Monocyte# 0.66 X10^3/uL; Monocyte% 6.8 % (0-10); NRBC Flagged by Analyzer 0 % (0-5); Neutrophil # 8.48 X10^3/uL (2.7-7.7); Neutrophil % 87.7 % (47-70); POSITIVE DIFFERENTIAL YES; Platelet Count 127 K/mm3 (150-450); RBC Distribution Width CV 13.2 % (11.6-14.6); RBC Distribution Width SD 43.1 fl (35.1-43.9); Red Blood Count 4.37 M/mm3 (4.6-6.2); White Blood Count 9.7 K/mm3 (4.4-11.0)
[2022-05-13 16:29] LABS: Differential Indicated SCAN CRITERIA MET
--- NOTE | 2022-05-13 16:29 | RAD_ITS ---
INDICATION: PT STATED PAIN NO INJURY EXAMINATION/TECHNIQUE: X-RAY - RIGHT XR Hip Unilateral with Pelvis when performed; 2-3 Views 3 VIEWS COMPARISON: None. FINDINGS: SOFT TISSUES: Lesser trochanter enthesophyte. No soft tissue swelling or gas. No radiopaque foreign body. BONES/JOINTS: No acute fracture or subluxation. The pelvic ring appears intact. Normal alignment. Right acetabular osteophyte with minimal joint space narrowing. RAD/HIP, UNI W/ Pelvis 2-3 Views IMPRESSION: Right hip DJD. Lesser trochanter enthesophyte. Electronically Signed: Gaurav Mora MD at 16:57 EST ,
[2022-05-13 16:35] LABS: Anion Gap 8 (5-15); BUN 14 mg/dL (7-18); BUN/Creat Ratio 13.7 RATIO (10-20); Calcium,Total 8.5 mg/dL (8.5-10.1); Chloride 102 mmol/L (98-107); Creatinine, Serum 1.02 mg/dL (0.70-1.30); EST Glomerular Filtration Rate 86 mL/min (>60); Est Glom Filt Rate - Afr Amer 104 mL/min (>60); Estimated Creatinine Clearance 105.66 ml/min; Glucose 115 mg/dL (74-106); Sodium Level 135 mmol/L (136-145)
[2022-05-13 17:21] LABS: Differential Comment SCANNED
[2022-05-13] MEDS: oxyCODONE 5 MG Tablet PO (19:48)
== END 2022-05-13 20:06 | disposition home or self-care (01) ==
PROVIDERS: Emergency Provider Student in an Organized Health Care Education/Training Program; PCP Internal Medicine; Visit Provider Student in an Organized Health Care Education/Training Program
DX: S73.101A Unspecified sprain of right hip, initial encounter (principal); H60.92 Unspecified otitis externa, left ear; X58.XXXA Exposure to other specified factors, initial encounter
CPT/HCPCS: 73502; 80048; 85025; 87428; 96374; 96375; 99283; A4216; J2405

== ENCOUNTER 2022-05-14 15:43 | Emergency (ER) | payer BC, OTHER, SELFPAY ==
[2022-05-14] VITALS (16 sets, daily range): BP systolic 62–139; BP diastolic 33–96; PULSE 52–133; RESP 14–26; TEMP 35.5–37.6; O2SAT 94–99; BMI 32.5
--- NOTE | 2022-05-14 16:36 | CT_ITS ---
INDICATION: Right hip and groin pain, reason EXAMINATION: CT BONE - CT Hip W/O Contrast Injection TECHNIQUE: Helically acquired images were obtained of the right hip. 2-D reformats were performed by the technologist. A radiation dose optimization technique was used for this scan. IV Contrast dosage and agent: None. COMPARISON: None. FINDINGS: SOFT TISSUES: Diffuse anteromedial thigh soft tissue swelling. Right hemipelvis inflammatory stranding. No radiopaque foreign body. BONES/JOINTS: No acute fracture or subluxation. Normal alignment. Preservation of the joint space. No sclerotic or destructive changes. CT/Extremity Lower without Contra IMPRESSION: Inflammatory stranding from the right hemipelvis, along the femoral vascular bundle, into the anterior and medial right thigh. No associated fracture or hematoma. Electronically Signed: Gaurav Mora MD at 17:27 EST ,
--- NOTE | 2022-05-14 16:41 | EX.ED.DYSGE1 ---
HPI History of Present Illness Chief Complaint: General Illness Narrative Narrative: Patient presents with right hip pain which is nontraumatic. He was seen yesterday and had unremarkable x-ray of the. He presents today with much worse pain and he noticed a rash around his inguinal region although he has been using ice pad as well as heating pads on that region. He has no back pain. The pain in his groin and hip, it radiates to his mid thigh region. No knee pain. He has no urinary symptoms. No recent fevers or chills. He did have a recent otitis externa and was treated with antibiotic drops. [facility] Medical History Alcohol use Eosinophilic esophagitis Fatty liver GERD (gastroesophageal reflux disease) History of sleep apnea Non-smoker Restless legs Home Medications multivitamin with minerals 1 ea PO DAILY 02/04/20 [History Last Taken Unknown] fluticasone propionate 50 mcg/actuation nasal spray,suspension (Flonase Allergy Relief) 2 spray intranasal DAILY 05/29/21 [History Last Taken Unknown] bupropion HCl 150 mg 24 hr tablet, extended release (Wellbutrin XL) 150 mg PO QAM #90 tabs 12/22/21 [Rx Last Taken Unknown] ciprofloxacin 0.3 %-dexamethasone 0.1 % ear drops,suspension (Ciprodex) 4 drp EACH EAR BID 7 days #7.5 mL 05/13/22 [Rx Last Taken Unknown] oxycodone 5 mg tablet 5 mg PO Q6H PRN Pain 05/14/22 [History Last Taken Unknown] prednisone 20 mg tablet 20 mg PO DAILY 05/14/22 [History Last Taken Unknown] Allergy/AdvReac Type Severity Reaction Status Date / Time No Known Allergies Allergy Verified 05/14/22 15:49 Family History Father Diabetes Heart disease Multiple sclerosis Grandmother Arthritis Surgical History History of tonsillectomy and adenoidectomy Normal colonoscopy Normal endoscopy Social History Smoking Status: Never smoker alcohol intake: current alcohol intake frequency: holidays/special occasions only substance use type: does not use what type of physical activity do you participate in: bicycling and yoga frequency: 1-2 times per week ROS ROS ED ROS Narrative Past medical history: Reviewed Medications: Reviewed Social history: Noncontributory Review of systems: All systems negative except as indicated General: No fever Cardiovascular: No chest pain Respiratory: No shortness of breath or cough Gastrointestinal: No abdominal pain, nausea vomiting or diarrhea Genitourinary: No dysuria Musculoskeletal: Hip pain as in HPI Skin: Inner thigh rash as in HPI Neurological: No memory loss, confusion or any focal weakness Psych: No recent behavioral changes Hematologic: No easy bleeding or easy bruising EXAM Physical Exam Narrative Exam Narrative: Physical exam General: Well nourished, Well developed, No Acute Distress Head: Normocephalic, Atraumatic Eyes: Conjunctiva not pale ENT: Moist mucous membranes Neck: Supple, Nontender, No lymphadenopathy Cardiovascular: Regular rate, Regular rhythm Respiratory: No distress, CTA bilaterally Abdomen: Soft, Nontender, Nondistended Back: Nontender, Normal Inspection. Negative for: CVA tenderness Extremities: Patient has tenderness with logrolling as well as flexion and extension of the right hip. He has slightly pruritic rash on the inside of the thigh, there is no pallor present, no calor, no crepitus. Skin: Inner thigh rash as above. Otherwise skin is slightly cool to the touch, it is not mottled initially Neurological: Alert, Normal Strength, Normal Sensation Psychological: Normal affect Const Vital Signs: 05/14/22 15:46 05/14/22 18:03 05/14/22 18:46 Temperature 96 F L Temperature Source Temporal Pulse Rate 107 H 122 H 133 H Pulse Rate [19] Pulse Rate [5] Respiratory Rate 16 22 H 26 H Respiratory Pattern Blood Pressure 119/82 H 139/96 H 123/90 H Blood Pressure [5] Blood Pressure Mean 94 110 101 Blood Pressure Source Pulse Ox 99 94 99 Oxygen Delivery Method Room Air Room Air Nasal Cannula Oxygen Flow Rate (L/min) 2 Fraction of Inspired Oxygen (FIO2) 05/14/22 19:27 05/14/22 19:40 05/14/22 19:36 Temperature Temperature Source Pulse Rate 133 H Pulse Rate [19] 90 Pulse Rate [5] 52 L Respiratory Rate 15 Respiratory Pattern Blood Pressure 95/66 95/33 L Blood Pressure [5] 83/40 L Blood Pressure Mean 75 53 Blood Pressure Source Monitor Pulse Ox Oxygen Delivery Method Ambu-Bag Mechanical Ventilator Oxygen Flow Rate (L/min) Fraction of Inspired Oxygen (FIO2) 05/14/22 20:00 05/14/22 20:07 05/14/22 20:10 Temperature Temperature Source Pulse Rate 112 H 102 H 101 H Pulse Rate [19] Pulse Rate [5] Respiratory Rate 14 16 Respiratory Pattern Blood Pressure 102/62 84/55 L 80/57 L Blood Pressure [5] Blood Pressure Mean 75 64 64 Blood Pressure Source Monitor Pulse Ox Oxygen Delivery Method Mechanical Ventilator Oxygen Flow Rate (L/min) Fraction of Inspired Oxygen (FIO2) 05/14/22 20:15 05/14/22 20:30 05/14/22 20:36 Temperature 99.7 F H Temperature Source Core Pulse Rate 100 100 90 Pulse Rate [19] Pulse Rate [5] Respiratory Rate 14 Respiratory Pattern Blood Pressure 77/56 L 93/56 L 74/59 L Blood Pressure [5] Blood Pressure Mean 63 68 64 Blood Pressure Source Monitor Pulse Ox Oxygen Delivery Method Mechanical Ventilator Oxygen Flow Rate (L/min) Fraction of Inspired Oxygen (FIO2) 05/14/22 20:43 05/14/22 21:01 05/14/22 21:15 Temperature Temperature Source Pulse Rate 83 100 89 Pulse Rate [19] Pulse Rate [5] Respiratory Rate 14 Respiratory Pattern Blood Pressure 74/54 L 90/59 L 62/46 L Blood Pressure [5] Blood Pressure Mean 60 69 51 Blood Pressure Source Pulse Ox Oxygen Delivery Method Mechanical Ventilator Oxygen Flow Rate (L/min) Fraction of Inspired Oxygen (FIO2) 05/14/22 19:47 Temperature Temperature Source Pulse Rate 128 H Pulse Rate [19] Pulse Rate [5] Respiratory Rate 14 Respiratory Pattern Normal Blood Pressure Blood Pressure [5] Blood Pressure Mean Blood Pressure Source Pulse Ox Oxygen Delivery Method Oxygen Flow Rate (L/min) Fraction of Inspired Oxygen (FIO2) 100 MDM MDM MDM Narrative Medical decision making narrative: My initial thought is that the patient may have a septic hip he was slightly tachycardic febrile and had normal blood pressure. I was called to the room about an hour later apparently patient is more tachycardic and more short of breath. At that time there is some stranding on the initial CT and to me it looked like the rash was slightly worse than before. However the patient did have some numbness tingling in the fingers therefore I was worried about dissection at that time I send the patient for CT angiogram. This was unremarkable however the stranding was somewhat worse again I examined the patient and he did not have any crepitus but his rash got worse. At that time I started becoming more worried about necrotizing fasciitis although based on the patient's progression I was also worried about bacteremia, in the meantime he had become more tachycardic and now his skin was mottled and he was at times diaphoretic. I ordered broad-spectrum antibiotics and called surgery, who came in from home the blood gas that was done and showed a pH of 6.9, I did order bicarbonate and as we are pushing the bicarbonate the patient went unresponsive and we lost his pulse. At that time CPR was started by me. Epinephrine and bicarb were pushed, at pulse check patient regained a pulse. However he was still minimally responsive and I intubated him. See procedure note. At the same time Dr. Horn placed a left femoral central line. Patient was found to be more hypoglycemic and was given D50. I placed him on a bicarb drip, he is on sedatives and pressors. I did discuss with both surgery and medicine about transfer however we have tried multiple places and they do not have ICU beds, also the patient is unstable. We will admit him to our ICU, Dr. Horn is planning at bedside incision and drainage. I did get a call back to the room, apparently the patient went into cardiac arrest again. At this time full ACLS measures were employed. Patient received multiple rounds of bicarbonate and epinephrine and calcium. Repeat ABG showed worsening acidosis of 6.7, that along with a lactate of 11 is likely incompatible with life, despite her best measures patient ended up having asystole, I talked to and care was with drawn. See flowsheet for details. Lab Data Labs: Laboratory Results - last 24 hr 05/14/22 05/14/22 05/14/22 16:49 16:49 16:49 WBC 7.5 RBC 4.99 Hgb 15.3 Hct 45.5 MCV 91.2 MCH 30.7 MCHC 33.6 RDW Std Deviation 45.1 H RDW Coeff of Alfonso 13.3 Plt Count 84 L MPV 11.1 Immature Gran % (Auto) 0.100 Neut % (Auto) 95.7 H Lymph % (Auto) 2.1 L [place] % (Auto) 1.6 Eos % (Auto) 0.0 Baso % (Auto) 0.5 Absolute Neuts (auto) 7.2 Absolute Lymphs (auto) 0.16 L Nucleated RBC % 0 Differential Comment SEE COMMENT Diff Path Review May foll Platelet Estimate MOD DEC RBC Morphology N CHROM Anisocytosis RARE Macrocytosis RARE ESR 35 H PT 21.2 H INR 1.9 APTT Sodium 127 L Potassium 3.8 Chloride 90 L Carbon Dioxide 16.0 L Anion Gap 21 H BUN 31 H Creatinine 2.79 H Estim Creat Clear Calc 38.63 Est GFR (MDRD) Af Amer 32 L Est GFR (MDRD) Non-Af 27 L BUN/Creatinine Ratio 11.1 Glucose 63 L Lactic Acid Uric Acid 7.6 H Calcium 8.4 L Phosphorus Magnesium Total Bilirubin 6.40 H AST 312 H ALT 86 H Alkaline Phosphatase 102 C-React Prot Ext Range 237.00 H B-Natriuretic Peptide Total Protein 7.8 Albumin 3.3 Globulin 4.5 H Albumin/Globulin Ratio 0.7 L POC Glucose 05/14/22 05/14/22 05/14/22 16:49 16:49 16:49 WBC RBC Hgb Hct MCV MCH MCHC RDW Std Deviation RDW Coeff of Alfonso Plt Count MPV Immature Gran % (Auto) Neut % (Auto) Lymph % (Auto) [place] % (Auto) Eos % (Auto) Baso % (Auto) Absolute Neuts (auto) Absolute Lymphs (auto) Nucleated RBC % Differential Comment Diff Path Review Platelet Estimate RBC Morphology Anisocytosis Macrocytosis ESR PT INR APTT 42.6 H Sodium Potassium Chloride Carbon Dioxide Anion Gap BUN Creatinine Estim Creat Clear Calc Est GFR (MDRD) Af Amer Est GFR (MDRD) Non-Af BUN/Creatinine Ratio Glucose Lactic Acid Uric Acid Calcium Phosphorus 8.7 H Magnesium 2.1 Total Bilirubin AST ALT Alkaline Phosphatase C-React Prot Ext Range B-Natriuretic Peptide 238.3 H Total Protein Albumin Globulin Albumin/Globulin Ratio POC Glucose 05/14/22 05/14/22 05/14/22 19:23 19:44 20:01 WBC RBC Hgb Hct MCV MCH MCHC RDW Std Deviation RDW Coeff of Alfonso Plt Count MPV Immature Gran % (Auto) Neut % (Auto) Lymph % (Auto) [place] % (Auto) Eos % (Auto) Baso % (Auto) Absolute Neuts (auto) Absolute Lymphs (auto) Nucleated RBC % Differential Comment Diff Path Review Platelet Estimate RBC Morphology Anisocytosis Macrocytosis ESR PT INR APTT Sodium Potassium Chloride Carbon Dioxide Anion Gap BUN Creatinine Estim Creat Clear Calc Est GFR (MDRD) Af Amer Est GFR (MDRD) Non-Af BUN/Creatinine Ratio Glucose Lactic Acid 11.7 H* Uric Acid Calcium Phosphorus Magnesium Total Bilirubin AST ALT Alkaline Phosphatase C-React Prot Ext Range B-Natriuretic Peptide Total Protein Albumin Globulin Albumin/Globulin Ratio POC Glucose 24 L* 81 05/14/22 05/14/22 20:19 21:23 WBC RBC Hgb Hct MCV MCH MCHC RDW Std Deviation RDW Coeff of Alfonso Plt Count MPV Immature Gran % (Auto) Neut % (Auto) Lymph % (Auto) [place] % (Auto) Eos % (Auto) Baso % (Auto) Absolute Neuts (auto) Absolute Lymphs (auto) Nucleated RBC % Differential Comment Diff Path Review Platelet Estimate RBC Morphology Anisocytosis Macrocytosis ESR PT INR APTT Sodium Potassium Chloride Carbon Dioxide Anion Gap BUN Creatinine Estim Creat Clear Calc Est GFR (MDRD) Af Amer Est GFR (MDRD) Non-Af BUN/Creatinine Ratio Glucose Lactic Acid Uric Acid Calcium Phosphorus Magnesium Total Bilirubin AST ALT Alkaline Phosphatase C-React Prot Ext Range B-Natriuretic Peptide Total Protein Albumin Globulin Albumin/Globulin Ratio POC Glucose 27 L* 94 ABG Data ABG results: ABG 05/14/22 19:15 Specimen Type ALIDA Sample Site R Radial VBG pH 6.99 L* VBG pO2 28 VBG HCO3 10 L VBG Total CO2 11 L VBG O2 Sat (Calc) 29 L VBG Base Excess -22 L POC Mix VBG pCO2 Pt Tmp 40.9 L O2 Delivery Device Cannula Liter Flow 2.0 Crit Call To/Read Back Yes Blood Gas Notified Whom Cornici Blood Gas Notified Time 19:17:15 Radiography Diagnostic Testing: Clinical Impression(s) from Imaging Studies Lower Extremity CT 05/14/22 16:36 IMPRESSION: Inflammatory stranding from the right hemipelvis, along the femoral vascular bundle, into the anterior and medial right thigh. No associated fracture or hematoma. Electronically Signed: Gaurav Mora MD at 17:27 EST , Chest/Abdomen/Pelvis CTA 05/14/22 17:45 IMPRESSION: 1. Right thigh skin thickening and inflammatory stranding that extends into the pelvis is suspicious for cellulitis with pelvic extension. 2. Scattered groundglass densities in both lungs may represent developing multifocal pneumonia. 3. CT angiogram of the thoracic and abdominal aorta and iliofemoral arteries is within normal limits. Electronically Signed: Gaurav Mora MD at 19:12 EST , Procedures Intubations Intubation Method: orotracheal (Pomona scope was used, 7.5 ET tube) Intubation Verification: Positive color change Intubation Complications: no complications and O2 saturation decreased Critical Care Time Critical care time (excluding procedures): 75-104 minutes, Including time spent:, Discussing w/Patient &/or Family/Extension Course Coordinator, Discussing w/Consultants, Arranging Admission or Transfer, Performing Direct Patient Care at Bedside and - (Critical care time of 80 minutes.) Discharge Plan Triage Chief Complaint: General Illness ED Provider: Gaurav Parisi Dx/Rx/DC Orders Clinical Impression: MSOF (multiple systems organ failure), Septic shock, Necrotizing fasciitis, Respiratory failure, SHIRLEY (acute kidney injury), Hypoglycemia, Cardiac arrest Prescriptions: No Action fluticasone propionate [Flonase Allergy Relief] 50 mcg/actuation spray,suspension 2 spray intranasal DAILY Rx Instructions: administer into each nostril multivitamin with minerals 1 EACH tablet 1 ea PO DAILY ciprofloxacin-dexamethasone [Ciprodex] 0.3-0.1 % drops,suspension 4 drp EACH EAR BID 7 Days Qty: 7.5 0RF prednisone 20 mg tablet 20 mg PO DAILY oxycodone 5 mg Tablet 5 mg PO Q6H PRN (Reason: Pain) bupropion HCl [Wellbutrin XL] 150 mg tablet extended release 24 hr 150 mg PO QAM Qty: 90 3RF Primary Care Provider: Tosin Nair Referrals: Tosin Nair MD [Primary Care Provider] - Disposition Disposition:
[2022-05-14] MEDS: Ondansetron 4 MG/2 ML Vial IV (16:55)
[2022-05-14] MEDS: Morphine 4 MG/ML Syringe IV (16:56)
[2022-05-14 17:04] LABS: Absolute Lymphocyte Count 0.16 X10^3/uL (0.83-4.51); Absolute Neutrophil Count 7.2 X10^3/uL (2.0-7.7); Basophil# 0.04 X10^3/uL; Basophil% 0.5 % (0-1); Hematocrit 45.5 % (40-54); Hemoglobin 15.3 g/dL (13.0-16.5); Lymphocyte # 0.16 X10^3/ul (0.83-4.51); Lymphocyte % 2.1 % (19-41); Mean Corp Hgb Conc 33.6 g/dL (32-36); Mean Corpuscular Hgb 30.7 pg (27.0-32.0); Mean Corpuscular Volume 91.2 fL (80-94); Mean Platelet Vol. 11.1 fl (6.2-12.0); Monocyte# 0.12 X10^3/uL; Monocyte% 1.6 % (0-10); NRBC Flagged by Analyzer 0 % (0-5); Neutrophil # 7.16 X10^3/uL (2.7-7.7); Neutrophil % 95.7 % (47-70); POSITIVE COUNT YES; POSITIVE DIFFERENTIAL YES; POSITIVE MORPHOLOGY YES; Platelet Count 84 K/mm3 (150-450); RBC Distribution Width CV 13.3 % (11.6-14.6); RBC Distribution Width SD 45.1 fl (35.1-43.9); Red Blood Count 4.99 M/mm3 (4.6-6.2); White Blood Count 7.5 K/mm3 (4.4-11.0)
[2022-05-14 17:31] LABS: Erythrocyte Sedimentation Rate 35 mm/hr (0-20)
[2022-05-14 17:32] LABS: Differential Indicated SCAN CRITERIA MET
[2022-05-14 17:36] LABS: International Normalized Ratio 1.9; Prothrombin Time (Protime)PT. 21.2 SECONDS (11.7-14.9)
[2022-05-14 17:38] LABS: ALB/GLOB Ratio 0.7 RATIO (0.9-2.4); AST(SGOT) 312 U/L (15-37); Alanine Aminotransfer ALT/SGPT 86 U/L (16-61); Albumin, Serum 3.3 g/dL (3.2-5.0); Alkaline Phosphatase 102 U/L (45-117); Anion Gap 21 (5-15); BUN 31 mg/dL (7-18); BUN/Creat Ratio 11.1 RATIO (10-20); Calcium,Total 8.4 mg/dL (8.5-10.1); Chloride 90 mmol/L (98-107); Creatinine, Serum 2.79 mg/dL (0.70-1.30); EST Glomerular Filtration Rate 27 mL/min (>60); Est Glom Filt Rate - Afr Amer 32 mL/min (>60); Estimated Creatinine Clearance 38.63 ml/min; Globulin 4.5 g/dL (2.2-4.2); Glucose 63 mg/dL (74-106); Potassium 3.8 mmol/L (3.5-5.1); Protein, Total 7.8 g/dL (6.4-8.2); Sodium Level 127 mmol/L (136-145); Uric Acid 7.6 mg/dL (3.5-7.2)
--- NOTE | 2022-05-14 17:45 | CT_ITS ---
CTA THORAX/ABDOMEN/PELVIS INDICATION: Chest pain, right groin pain, bilateral hands COMPARISON: Same day right hip CT. TECHNIQUE: Helical axial scans were obtained through the chest, abdomen, and pelvis during IV contrast infusion, followed by 100 mL saline flush. Coronal reformat images as well as 3-D rotational reconstruction of aorta and in plane reconstructions of right and left iliac arteries were obtained. CT scan done according to ALARA (As Low As Reasonably Achievable). CONTRAST: 100 mL of Isovue-370 mmol/mL) was administered IV. FINDINGS: CTA Pulmonary arteries: No evidence of pulmonary arterial emboli. Thoracic aorta: No aneurysm or dissection. No atherosclerotic calcific plaque noted. Abdominal aorta: No aneurysm or dissection. Iliofemoral arteries: Widely patent Renal arteries: Widely patent Celiac artery: Widely patent SMA: Widely patent ELISE: Widely patent CT Lungs and pleura: There is diffuse scattered groundglass densities in both lungs. No significant emphysematous changes. No effusions. Mediastinum and pulmonary marcelina: No mass or adenopathy. Heart: Normal heart size. No pericardial effusion. Liver and spleen: Normal size. No mass. Gallbladder: No calcified stones or wall thickening identified. Bile ducts: No biliary dilatation. Pancreas: No mass or enlargement. No pancreatic fluid collections. Adrenals and kidneys: No adrenal masses. Normal renal contours. No cysts. No stones identified. No hydronephrosis. Lymph nodes: No adenopathy. Bowel and mesentery: There is a normal appearance of the stomach and small bowel. No areas of bowel wall thickening or inflammation are noted. Appendix is normal. Peritoneal cavity: No ascites. Pelvic structures: Inflammatory stranding in the rightward pelvis is redemonstrated, with extension to the presacral area, and the right anterior and medial thigh superficial soft tissues there are prominent associated right iliofemoral lymph nodes. Body wall: Right medial thigh skin thickening. Skeletal structures: Degenerative changes throughout the thoracolumbar spine.. CT/CTA Chst, Abd, Pel W and/or WO IMPRESSION: 1. Right thigh skin thickening and inflammatory stranding that extends into the pelvis is suspicious for cellulitis with pelvic extension. 2. Scattered groundglass densities in both lungs may represent developing multifocal pneumonia. 3. CT angiogram of the thoracic and abdominal aorta and iliofemoral arteries is within normal limits. Electronically Signed: Gaurav Mora MD at 19:12 EST ,
[2022-05-14] MEDS: 0.9% Normal Saline 1,000 ML 999 ML IV ×2 (17:53→19:30)
[2022-05-14 18:12] LABS: Anisocytosis RARE; Macrocytosis RARE; Platelet Estimate MOD DEC (ADEQ); Red Cell Morphology N CHROM NORMAL (NORM C&C)
--- NOTE | 2022-05-14 18:37 | ED.RN ---
Patient has increased swelling to right upper leg. Dr. Parisi notified and to cart sided to evaluate patient.
[2022-05-14 19:20] LABS: Blood Gas Specimen Type VEN; O2 Delivery Device Cannula; SITE R Radial; VBG BASE EXCESS -22 mmol/L (-1.0-3.5); VBG Bicarbonate 10 mmol/L (22-26); VBG PO2 28 mmHg (25-40); VBG SO2 29 % (50-70); VBG TCO2 11 mmol/L (23-33); VBG pCO2 40.9 mmHg (41-51); VBG pH 6.99 (7.32-7.42)
[2022-05-14] MEDS: Sodium Bicarbonate 8.4% 50 ML Syringe 50 MEQ IV ×2 (19:23→20:54)
[2022-05-14] MEDS: Dextrose 50%-Water 25 GM/50 ML DISP.SYRIN IV ×2 (19:45→20:22)
--- NOTE | 2022-05-14 19:57 | HP.PCM.HOS_ITS ---
HPI - General General Date of Admission: 05/14/22 Date of Service: 05/14/22 Chief Complaint: R hip pain, redness. HPI Narrative The patient is a 41 y/o M w/ PMHx: Obesity, SHERLY, RLS, Anxiety and Depression, Allergic rhinitis who presents to the [facility] ED on 05/14/22 with history of right hip pain for the last couple days, seen in the ED the day prior with unremarkable blood work at that time, felt likely hip related eventually discharged to home who now represents with onset of a rash in the inguinal region but reported using a heating/ice pad to the region with severe R groin/hip pain with radition to the mid thigh. While in the ED he decompensated, becaome more tachycardic, his ABG notable with amp bicarb given. He was laid down for an IJ line as his BP started to drop and he became unresponse and lost pulse with ROSC with 1 round CPR, intubated, L femoral line placed. Work-up in the ED included T 96, heart rate 107, BP 119/82, respiratory rate 16 however patient eventually became bradycardic and hypotensive with heart rate initially 52, BP 83/40 transitioning to an Ambu bag, CBC with WC 7.5, hemoglobin 15.3, platelet 84 with lymphopenia, coags with INR 1.9, PT 21.2, VBG with pH 6.99, PO2 28, bicarb 10, total CO2 11, performed on 2 L nasal cannula, CMP with sodium 127, chloride 90, carbon dioxide 60, anion gap 21, BUN/creatinine 31/2.79, glucose 63, uric acid 7.6, calcium 8.4, total bilirubin 6.40, AST/ALT 312/86, CRP 237, CT of the right hip and groin with inflammatory stranding of the right hemipelvis along the femoral vascular bundle into the anterior medial right thigh with no associated fracture hematoma, right thigh skin thickening and inflammatory stranding that extends into the pelvis suspicious for cellulitis with pelvic extension, scattered groundglass densities in both lungs possibly developing multifocal pneumonia, CTA of the thoracic and abdominal aorta and iliofemoral artery within normal. In the ED patient administered clindamycin, vanc and zosyn. ED reviewed case and patient was evaluated by Dr. Horn. [facility] Medical History Alcohol use Eosinophilic esophagitis Fatty liver GERD (gastroesophageal reflux disease) History of sleep apnea Non-smoker Restless legs Home Medications multivitamin with minerals 1 ea PO DAILY 02/04/20 [History Last Taken Unknown] fluticasone propionate 50 mcg/actuation nasal spray,suspension (Flonase Allergy Relief) 2 spray intranasal DAILY 05/29/21 [History Last Taken Unknown] bupropion HCl 150 mg 24 hr tablet, extended release (Wellbutrin XL) 150 mg PO QAM #90 tabs 12/22/21 [Rx Last Taken Unknown] ciprofloxacin 0.3 %-dexamethasone 0.1 % ear drops,suspension (Ciprodex) 4 drp EACH EAR BID 7 days #7.5 mL 05/13/22 [Rx Last Taken Unknown] oxycodone 5 mg tablet 5 mg PO Q6H PRN Pain 05/14/22 [History Last Taken Unknown] prednisone 20 mg tablet 20 mg PO DAILY 05/14/22 [History Last Taken Unknown] Allergy/AdvReac Type Severity Reaction Status Date / Time No Known Allergies Allergy Verified 05/14/22 15:49 Family History Father Diabetes Heart disease Multiple sclerosis Grandmother Arthritis Surgical History History of tonsillectomy and adenoidectomy Normal colonoscopy Normal endoscopy Social History Smoking Status: Never smoker alcohol intake: current alcohol intake frequency: holidays/special occasions only substance use type: does not use what type of physical activity do you participate in: bicycling and yoga frequency: 1-2 times per week ROS Review of Systems ROS Unobtainable: due to endotracheal tube Vital Signs Vital Signs Vital Signs: 05/14/22 15:46 05/14/22 18:03 05/14/22 18:46 Temperature 96 F L Temperature Source Temporal Pulse Rate 107 H 122 H 133 H Pulse Rate [5] Respiratory Rate 16 22 H 26 H Blood Pressure 119/82 H 139/96 H 123/90 H Blood Pressure [5] Blood Pressure Mean 94 110 101 Pulse Ox 99 94 99 Oxygen Delivery Method Room Air Room Air Nasal Cannula Oxygen Flow Rate (L/min) 2 05/14/22 19:27 05/14/22 19:40 Temperature Temperature Source Pulse Rate 133 H Pulse Rate [5] 52 L Respiratory Rate 15 Blood Pressure 95/66 Blood Pressure [5] 83/40 L Blood Pressure Mean 75 Pulse Ox Oxygen Delivery Method Ambu-Bag Mechanical Ventilator Oxygen Flow Rate (L/min) Weight Weight: 239 lb 13.807 oz Body Mass Index (BMI) 32.5 Physical Exam Narrative Physical Examination: General: Intubated, sedated, recent cardiopulmonary arrest with ROSC. Skin: Normal color, normal turgor, no icterus, no cyanosis except for si gnificant right upper inner groin bullous erythematous rash with notable increased since his initial presentation to the ED per discussion with staff, edema to this region, increased warmth. HEENT: AT/NC, EOM unable to be assessed given intubated and sedated status, PERRLA, dry MM, no carotid bruits or JVD noted however thickened neck makes evaluation difficult, intubated. Lungs: Symmetric rise, intubated, sedated, coarse bilateral bases, no rhonchi or wheezing. Heart: Tachycardic with regular rhythm; no gallop, rub audible. Abdomen: Soft, obese, no obvious grimacing but intubated and sedated with palpation of his abdomen, no obvious distention, distant BS, no HSM. Extremities: No cyanosis, no clubbing, see skin. Neurological: Intubated, sedated, recent cardiopulmonary arrest with ROSC, c ognitive function not baseline intact; pupils equally reactive to light and accommodation, cranial nerves unable to be assessed given intubated and sedated status, strength accordingly severely globally decreased. Psychiatric: Affect appears flat, intubated and sedated, no acute evidence of depressive or anxiety feelings. Results Lab / Micro Data Result Diagrams: 05/14/22 16:49 05/14/22 16:49 Labs: Laboratory Results - last 24 hr 05/14/22 16:49: WBC 7.5, RBC 4.99, Hgb 15.3, Hct 45.5, MCV 91.2, MCH 30.7, MCHC 33.6, RDW Std Deviation 45.1 H, RDW Coeff of Alfonso 13.3, Plt Count 84 L, MPV 11.1, Immature Gran % (Auto) 0.100, Neut % (Auto) 95.7 H, Lymph % (Auto) 2.1 L, [place] % (Auto) 1.6, Eos % (Auto) 0.0, Baso % (Auto) 0.5, Absolute Neuts (auto) 7.2, Absolute Lymphs (auto) 0.16 L, Nucleated RBC % 0, Differential Comment SEE COMMENT, Diff Path Review May foll, Platelet Estimate MOD DEC, RBC Morphology N CHROM, Anisocytosis RARE, Macrocytosis RARE, ESR 35 H 05/14/22 16:49: Sodium 127 L, Potassium 3.8, Chloride 90 L, Carbon Dioxide 16.0 L, Anion Gap 21 H, BUN 31 H, Creatinine 2.79 H, Estim Creat Clear Calc 38.63, Est GFR (MDRD) Af Amer 32 L, Est GFR (MDRD) Non-Af 27 L, BUN/Creatinine Ratio 11.1, Glucose 63 L, Uric Acid 7.6 H, Calcium 8.4 L, Total Bilirubin 6.40 H, AST 312 H, ALT 86 H, Alkaline Phosphatase 102, C-React Prot Ext Range 237.00 H, Total Protein 7.8, Albumin 3.3, Globulin 4.5 H, Albumin/Globulin Ratio 0.7 L 05/14/22 16:49: PT 21.2 H, INR 1.9 ABG Data ABG results: ABG 05/14/22 19:15 Specimen Type ALIDA Sample Site R Radial VBG pH 6.99 L* VBG pO2 28 VBG HCO3 10 L VBG Total CO2 11 L VBG O2 Sat (Calc) 29 L VBG Base Excess -22 L POC Mix VBG pCO2 Pt Tmp 40.9 L O2 Delivery Device Cannula Liter Flow 2.0 Crit Call To/Read Back Yes Blood Gas Notified Whom Cornici Blood Gas Notified Time 19:17:15 Radiology Impression Lower Extremity CT 05/14/22 16:36 IMPRESSION: Inflammatory stranding from the right hemipelvis, along the femoral vascular bundle, into the anterior and medial right thigh. No associated fracture or hematoma. Electronically Signed: Gaurav Mora MD at 17:27 EST , Chest/Abdomen/Pelvis CTA 05/14/22 17:45 IMPRESSION: 1. Right thigh skin thickening and inflammatory stranding that extends into the pelvis is suspicious for cellulitis with pelvic extension. 2. Scattered groundglass densities in both lungs may represent developing multifocal pneumonia. 3. CT angiogram of the thoracic and abdominal aorta and iliofemoral arteries is within normal limits. Electronically Signed: Gaurav Mora MD at 19:12 EST , Assessment & Plan Assessment/Plan (1) Septic shock: (2) MSOF (multiple systems organ failure): (3) Necrotizing fasciitis: PLAN: Plan The patient is a 41 y/o M w/ PMHx: Obesity, SHERLY, RLS, Anxiety and Depression, Allergic rhinitis who presents to the [facility] ED on 05/14/22 with history of right hip pain for the last couple days, seen in the ED the day prior with unre markable blood work at that time, felt likely hip related eventually discharged to home who now represents with onset of a rash in the inguinal region but reported using a heating/ice pad to the region with severe R groin/hip pain with radition to the mid thigh. #1. Acute Cardiopulmonary arrest secondary to Acute Septic shock w/ Multiorgan failure secondary to R Pelvic Cellulitis/Suspected Necrotizing Fasciitis with pelvic extension and concurrent Multifocal pneumonia versus more likely ARDS (no respiratory complaints upon presentation) with suspected likely bacteremia: Given the is no available tertiary bed at this time per several discussions to the [facility] region per ED staff will admit to the ICU, reviewed case with the software engineering manager, will continue intubated and sedated status, continue central line care, continue Levophed with vasopressin addition if necessary, general surgery intention for bedside operative intervention given severity of appearance of the right lower extremity, will consult wound care, dressing changes per surgery discretion, will continue IV vancomycin, Zosyn and clindamycin, did discuss and request with surgery that if any findings/purulent material be found samples be obtained for wound culture and MRSA wound, will continue aggressive fluids as well as bicarb supplementation, trend lactic acid per facility protocol, cycle cardiac enzymes, FLP in a.m., echocardiogram requested but again cardiopulmonary rest secondary to underlying infection and metabolic derangements, Cardiology will also be consulted. #2. Hyperbilirubinemia, transaminitis, liver failure, secondary to #1: Admission CMP with total bilirubin 6.40, AST/LT 312/86, alk phos 102, prior labs unremarkable, coags requested, continued treatment as noted#1, repeat levels in AM, liver US ordered. #3. Acute kidney injury, secondary to #1: Admission BUN/Cr 31/2.79, prior baseline creatinine noted to be 0.8-1.0. Will continue to hydrate, continued treatment as noted #1, renal US requested. #4. Hypoglycemia, persistent, likely secondary to #1: Admission glucose 63, likely secondary to acute presentation as noted, will continue to closely monitor blood sugars, will continue dextrose drip given successive hypoglycemic repeat blood sugar checks in the ED, hemoglobin A1c requested, continue serial Accu-Cheks. Currently D5 in the ED however low threshold to transition to D10 pending further Accu-Cheks. #5. Thrombocytopenia, appears new onset, likely secondary to recent acute infection, reactive, #1: Admission platelets 84, 05/13/2022 platelets 127, normal prior to this, likely reactive, trend CBC. #6. Obesity: Weight loss and lifestyle changes once appropriately extubated will be encouraged. #7. SHERLY: Currently intubated and sedated, once extubated will transition to CPAP. #8. GERD: Maintaining on IV PPI as noted above. #9. DVT prophylaxis: SCDs, plan heparin pending coags as certainly could have auto anticoagulation given liver failure. #10. Code status: Full code. Charges/Coding Procedures Hospitalists Procedures: Other Procedure - See Report (Critical care time: Billing [id number] and [id number] x 1.)
--- NOTE | 2022-05-14 19:58 | EKG12_ITS ---
Test Reason : DYSRHYTHMIA Blood Pressure : / mmHG Vent. Rate : 097 BPM Atrial Rate : 097 BPM P-R Int : 198 ms QRS Dur : 148 ms QT Int : 382 ms P-R-T Axes : 061 100 008 degrees QTc Int : 485 ms Normal sinus rhythm Right bundle branch block Abnormal ECG Confirmed by QUIRINO BARRETO, ERICA ([id number]), technical writer and editor JONATAN MORGAN ([id number]) on 05/19/2022 1:00:29 PM Referred By: CRISTIAN Confirmed By:ERICA WIN MD
[2022-05-14 20:09] LABS: Lactic Acid 11.7 mmol/L (0.4-1.9)
[2022-05-14 20:26] LABS: Bedside Glucose 24 mg/dL (74-106)
[2022-05-14 20:26] LABS: Bedside Glucose 81 mg/dL (74-106)
--- NOTE | 2022-05-14 20:31 | ED.RN ---
Dr. Horn at cart side. See procedural note.
[2022-05-14] MEDS: Dext 5%-0.45% NS 1,000 ML 125 ML IV (20:37)
[2022-05-14 20:41] LABS: Bedside Glucose 27 mg/dL (74-106)
--- NOTE | 2022-05-14 20:55 | ED.RN ---
2054 lower abd bear hugger placed on patient.
[2022-05-14 21:40] LABS: Bedside Glucose 94 mg/dL (74-106)
[2022-05-14 21:45] LABS: Partial Thromboplast Time 42.6 Seconds (24.1-36.2)
[2022-05-14 21:51] LABS: BNP,B-Type NATRIURETIC PEPTIDE 238.3 pg/mL (0-100)
[2022-05-14 22:12] LABS: Magnesium 2.1 mg/dL (1.6-2.6); Phosphorus 8.7 mg/dL (2.5-4.9)
--- NOTE | 2022-05-14 22:38 | EX.PCM.CON.S ---
Assessment & Plan Assessment/Plan (1) Septic shock: PLAN: This is a 41-year-old male who presented with acute onset right hip pain and associated rash. There was clinical suspicion for possible necrotizing fasciitis given the rapidity with which the rash progressed. By exam I was not fully convinced that this represented necrotizing fasciitis in review of patient's CT imaging failed to demonstrate any discrete fluid collections or subcutaneous air pockets. What was seen was haziness and clear inflammatory changes tracking from the upper thigh along the right iliopsoas and along the femoral vessels. (I also calculated patient's LRINEC score at 8 which did suggest there was a reasonable suspicion for necrotizing soft tissue infection). Given the patient's mottled appearance, altered mental status, and numerous lab derangements?including hyperbilirubinemia and elevated creatinine?I recommended immediate transfer to a tertiary facility given concern for multisystem organ failure and need for intensive care therapy that would be difficult to deliver at this facility. Emergency medicine reported that they had difficulties with transfer recently and I stated we would also develop a contingency plan as I feared patient would decompensate soon. I attempted to find out the availability of the operating room, but was told that a procedure just started and was estimated to take 2 hours. This information was relayed back to emergency medicine and at that time they sought to establish central venous access given reports that the patient had now exhibited some hypotension. At this point that I also discussed with patient's the possibility of a bedside incision and drainage procedure to assess for possible necrotizing fasciitis. Patient's spouse assured me of her interest in such a procedure and later provided a written consent. As I stepped out to prepare this consent, emergency medicine had begun looking for possible venous access in the neck and the patient suddenly had a code event. I presented to the patient's bedside and assisted the effort with placement of a left femoral central venous catheter via ultrasound guidance. After the patient was successfully intubated and had obtained ROSC I then, with the help of the emergency department, gathered supplies to perform a bedside incision and drainage procedure. Please see appended documentation for complete details. Patient notably did not have much response to this procedure despite being on limited sedation through Precedex. His blood pressures continue to soften and I offered to place a right radial arterial line for invasive monitoring of the blood pressure as we continued to escalate on vasopressors. This was accomplished also via ultrasound guidance. Please see documentation for details on this procedure. As we were looking to transduce the patient's arterial line we suddenly lost waveform in the arterial line and a palpable pulse. A significant code event followed and was recorded by the emergency department. Unfortunately despite our best efforts patient became progressively acidotic in the code was called. Patient's spouse and [id number] were kept up-to-date throughout these events. (2) Cutaneous abscess of lower extremity: HPI Consult Data Date of Consult: 05/14/22 HPI Narrative HPI Narrative: ROBERTO LAI, is a 41 M who presented to [facility] with his for complaints of right hip pain and a rash in his right groin region. Patient's spouse provided much of the history as patient appeared in some distress from a respiratory standpoint and generally feeling poor. She confirmed ED reports that they had presented yesterday for complaints of limited movement on the right hip, but x-rays had been unrevealing. She stated that all of this had transpired rather suddenly over the past 24 to 48 hours. She stated that her had been feeling well until that point. She denied any recent concerns for bug bites. She denied any history of staph infections. She did report that patient had been diagnosed with an ear infection and given topical antibiotics as well as oral steroids. She stated this seemed to have the desired effect as stuff came out of his ear. Per emergency medicine, patient had presented looking rather well, but a subtle rash in his right inguinal region had progressed rapidly during the course of evaluation. CT imaging of been performed of the right lower extremity and abdomen, but while awaiting read they contacted surgery out of concern for possible necrotizing fasciitis. [facility] Medical History Alcohol use Eosinophilic esophagitis Fatty liver GERD (gastroesophageal reflux disease) History of sleep apnea Non-smoker Restless legs Home Medications multivitamin with minerals 1 ea PO DAILY 02/04/20 [History Last Taken Unknown] fluticasone propionate 50 mcg/actuation nasal spray,suspension (Flonase Allergy Relief) 2 spray intranasal DAILY 05/29/21 [History Last Taken Unknown] bupropion HCl 150 mg 24 hr tablet, extended release (Wellbutrin XL) 150 mg PO QAM #90 tabs 12/22/21 [Rx Last Taken Unknown] ciprofloxacin 0.3 %-dexamethasone 0.1 % ear drops,suspension (Ciprodex) 4 drp EACH EAR BID 7 days #7.5 mL 05/13/22 [Rx Last Taken Unknown] oxycodone 5 mg tablet 5 mg PO Q6H PRN Pain 05/14/22 [History Last Taken Unknown] prednisone 20 mg tablet 20 mg PO DAILY 05/14/22 [History Last Taken Unknown] Allergy/AdvReac Type Severity Reaction Status Date / Time No Known Allergies Allergy Verified 05/14/22 15:49 Family History Father Diabetes Heart disease Multiple sclerosis Grandmother Arthritis Surgical History History of tonsillectomy and adenoidectomy Normal colonoscopy Normal endoscopy Social History Smoking Status: Never smoker alcohol intake: current alcohol intake frequency: holidays/special occasions only substance use type: does not use what type of physical activity do you participate in: bicycling and yoga frequency: 1-2 times per week Physical Exam Const alert Constitutional Narrative: Patient appeared very ill with pallor and early mottling. He overall answered questions appropriately, but appeared very lethargic. As we were performing the exam, he complained of some neck pain and when I placed his neck in flexion he stated there is pain along the back of his neck. Resp Resp Narrative: Labored breathing Extremity Extremity Narrative: Diffuse mottling of extremities. Right lower extremity proximally demonstrated a eruption of bullae medially. There is also the purpling of the skin that appeared to demarcate just proximal to the knee. Patient did have intact femoral and anterior tibial pulses. He also exhibited spontaneous movement and movement to command of his toes. There was tightness of the compartment with palpation seemingly from edema, but no evidence of crepitus. Lab / Micro Data Result Diagrams: 05/14/22 16:49 05/14/22 16:49 Labs: Laboratory Results - last 24 hr 05/14/22 16:49: WBC 7.5, RBC 4.99, Hgb 15.3, Hct 45.5, MCV 91.2, MCH 30.7, MCHC 33.6, RDW Std Deviation 45.1 H, RDW Coeff of Alfonso 13.3, Plt Count 84 L, MPV 11.1, Immature Gran % (Auto) 0.100, Neut % (Auto) 95.7 H, Lymph % (Auto) 2.1 L, [place] % (Auto) 1.6, Eos % (Auto) 0.0, Baso % (Auto) 0.5, Absolute Neuts (auto) 7.2, Absolute Lymphs (auto) 0.16 L, Nucleated RBC % 0, Differential Comment SEE COMMENT, Diff Path Review May foll, Platelet Estimate MOD DEC, RBC Morphology N CHROM, Anisocytosis RARE, Macrocytosis RARE, ESR 35 H 05/14/22 16:49: Sodium 127 L, Potassium 3.8, Chloride 90 L, Carbon Dioxide 16.0 L, Anion Gap 21 H, BUN 31 H, Creatinine 2.79 H, Estim Creat Clear Calc 38.63, Est GFR (MDRD) Af Amer 32 L, Est GFR (MDRD) Non-Af 27 L, BUN/Creatinine Ratio 11.1, Glucose 63 L, Uric Acid 7.6 H, Calcium 8.4 L, Total Bilirubin 6.40 H, AST 312 H, ALT 86 H, Alkaline Phosphatase 102, C-React Prot Ext Range 237.00 H, Total Protein 7.8, Albumin 3.3, Globulin 4.5 H, Albumin/Globulin Ratio 0.7 L 05/14/22 16:49: PT 21.2 H, INR 1.9 05/14/22 16:49: APTT 42.6 H 05/14/22 16:49: Phosphorus 8.7 H, Magnesium 2.1 05/14/22 16:49: B-Natriuretic Peptide 238.3 H 05/14/22 19:23: Lactic Acid 11.7 H* 05/14/22 19:44: POC Glucose 24 L* 05/14/22 20:01: POC Glucose 81 05/14/22 20:19: POC Glucose 27 L* 05/14/22 21:23: POC Glucose 94 ABG Data ABG results: ABG 05/14/22 19:15 Specimen Type ALIDA Sample Site R Radial VBG pH 6.99 L* VBG pO2 28 VBG HCO3 10 L VBG Total CO2 11 L VBG O2 Sat (Calc) 29 L VBG Base Excess -22 L POC Mix VBG pCO2 Pt Tmp 40.9 L O2 Delivery Device Cannula Liter Flow 2.0 Crit Call To/Read Back Yes Blood Gas Notified Whom Isak Blood Gas Notified Time 19:17:15 Radiology Impression Lower Extremity CT 05/14/22 16:36 IMPRESSION: Inflammatory stranding from the right hemipelvis, along the femoral vascular bundle, into the anterior and medial right thigh. No associated fracture or hematoma. Electronically Signed: Gaurav Mora MD at 17:27 EST , Chest/Abdomen/Pelvis CTA 05/14/22 17:45 IMPRESSION: 1. Right thigh skin thickening and inflammatory stranding that extends into the pelvis is suspicious for cellulitis with pelvic extension. 2. Scattered groundglass densities in both lungs may represent developing multifocal pneumonia. 3. CT angiogram of the thoracic and abdominal aorta and iliofemoral arteries is within normal limits. Electronically Signed: Gaurav Mora MD at 19:12 EST , Charges/Coding Visit Charges Office Visits / Consults: [id number] ED Visit; High/Threatening Severity
[2022-05-14] MEDS: DAKIN'S SOL HALF STRENGTH (=0.25%) TOPICAL (22:45)
--- NOTE | 2022-05-14 23:00 | PCM.OP.PRO ---
Procedure Report Date of Procedure: 05/14/22 Procedure name: Insertion of 7 Beninese, triple-lumen central venous catheter (21 cm length) to left femoral vein Procedure detail: Given the emergent nature within the code event consent was presumed, and patient's left groin and thigh region were prepped with chlorhexidine. The left femoral vein was localized using bedside ultrasound. The superficial tissues of the neck were then anesthetized with a local block using 4 mL 1% Xylocaine. Under direct ultrasound guidance the vein was accessed with return of dark red blood. Using a Seldinger technique a guidewire was placed without difficulty. The guidewire tract was then opened at the skin with an 11 blade and dilated dilated. Then the central venous catheter was inserted into the vein. All ports aspirated and flushed ease. The catheter was then sewn in using 0 silk in 2-point fixation. Insertion site was cleaned and a chlorhexidine dressing was placed about the catheter to maintain sterility. I approved the catheter for immediate use and infusion. Complications: None EBL: 5 mL Procedures Hospitalists Procedures: [id number] Insert Non-tunnel CV Cath
--- NOTE | 2022-05-14 23:04 | PCM.OP.PRO ---
Procedure Report Date of Procedure: 05/14/22 Procedure: Incision and drainage of right thigh After obtaining written consent from patient's spouse, patient's right inner thigh and groin were prepped with Betadine. Then, an #10 blade scalpel was used to make a longitudinal incision in this area through the skin and subcu tissue. I bluntly probed through the subcu tissue down to the muscle. This resulted in return of thin watery venous blood. As I digitally probed the cavity there was some separation of the soft tissue from the fascia which was suggestive for a possible necrotizing fasciitis, but I did not encounter any brackish effluent. Campers layer was notably devoid of much bleeding and it gave the appearance of general malperfusion. In an effort to provide more information on the patient's condition I have obtained a number of wound cultures via swabs of the cavity. Measurements were quickly obtained of the wound and it measured 9 cm long by 5 cm wide by 3.5 cm depth. There was medial undermining for an extent of 8 cm, cephalad undermining 6 cm, no lateral undermining, but inferiorly undermining of 6.5 cm. Then the cavity was packed with Dakins-soaked Kerlix gauze (the cavity accommodated two full rolls of Kerlix). To provide some absorbency I fluffed a third Curlex roll atop this wound and then placed several abdominal pads. This ensemble was held in place by rolling a fourth Kerlix around the area. EBL: 25 mL Procedures Integumentary 10xxx: [id number] Complex drainage wound
--- NOTE | 2022-05-14 23:12 | PRO.PCM_ITS ---
Procedure Report Date of Procedure: 05/14/22 Procedure: Insertion of right radial arterial line Indication: Invasive blood pressure monitoring with vasopressors Given the emergent nature of the situation (a pericode event) consent was presumed. Patient's right hand was supinated and his thumb was secured to the bed via tape to ensure the thumb remained everted and the area properly exposed. I then used ultrasound to localize the right radial artery. Color Doppler was used to confirm pulsatile flow. I moved just proximal to an area where respiratory therapy had obtained a prior arterial blood gas and found the artery to be pulsatile with a diameter approximately 2 mm. Here I used a Arrow dart system and on the second attempt had good flash return of bright red arterial blood. The built-in wire was advanced without difficulty and the catheter was threaded via a Seldinger technique. The catheter was then connected to pr essurized tubing and was secured in place at the patient's wrist using 2-0 silk suture and a chlorhexidine impregnated dressing. Unfortunately there were difficulties with transducing the catheter, but it did draw back bright red blood easily and a pulsatile waveform was present once transduced?indicating appropriate position. EBL: 2 mL Complications: None Procedures Hospitalists Procedures: [id number] Insertion Catheter Artery
[2022-05-14 23:34] LABS: Reflex Lactate? Y
[2022-05-15 05:40] LABS: Blood Gas Specimen Type ALINE; SITE ART LINE
[2022-05-15 05:42] LABS: FI02 100; SET FLOW RATE 15 lpm
[2022-05-15 05:43] LABS: Time Given 2131
[2022-05-15 05:45] LABS: PO2 224 mmHG (75-100); pCO2 34.5 mmHg (35-45)
[2022-05-15 05:46] LABS: Base Excess < -30 mmol/L (-2 to +2); Bicarbonate 4.5 mmol/L (22-26); SO2 98 % (95-99); Total Carbon Dioxide 6 mmol/L
[2022-05-15 07:50] LABS: Bedside Glucose 57 mg/dL (74-106)
[2022-05-15 07:50] LABS: Bedside Glucose < 10 mg/dL (74-106)
[2022-05-15 07:50] LABS: Bedside Glucose 56 mg/dL (74-106)
[2022-05-15 11:36] LABS: Pathologist Review Reviewed
[2022-05-16 06:21] LABS: pH 6.73 (7.35-7.45)
== END 2022-05-15 00:30 ==
PROVIDERS: Family Medicine; Emergency Provider Emergency Medicine; PCP Internal Medicine; Visit Provider Emergency Medicine
DX: A41.9 Sepsis, unspecified organism (principal); K72.90 Hepatic failure, unspecified without coma; N17.9 Acute kidney failure, unspecified; M72.6 Necrotizing fasciitis; R65.21 Severe sepsis with septic shock; I46.8 Cardiac arrest due to other underlying condition; J96.90 Respiratory failure, unspecified, unspecified whether with hypoxia or hypercapnia; K65.0 Generalized (acute) peritonitis; D69.6 Thrombocytopenia, unspecified; F41.9 Anxiety disorder, unspecified; E16.2 Hypoglycemia, unspecified; F32.A Depression, unspecified; E66.9 Obesity, unspecified; L02.415 Cutaneous abscess of right lower limb; J18.9 Pneumonia, unspecified organism; R68.89 Other general symptoms and signs; Z79.52 Long term (current) use of systemic steroids; E87.20 Acidosis, unspecified
CPT/HCPCS: 36556; 10061; 36620; 10060; 31500; 31720; 71275; 73700; 74174; 80053; 82803; 82962; 83605; 83735; 83880; 84100; 84550; 85025; 85610; 85652; 85730; 86140; 87040; 87077; 87149; 87186; 87428; 92950; 93005; 94002; 96361; 96365; 96366; 96367; 96368; 96375; 96376; 99282; 99291; J7030; J7040; J7050; Q9967; A4216; J2405; J3475; J3490; J7799